=== PATIENT | male | born 1950 | race Caucasian/White ===

== ENCOUNTER 2016-12-15 07:06 | Inpatient (IN) | payer BC ==
[2016-12-15] MEDS ORDERED: NS 0.9% 1000 ML* 1,000 ML IV ONE (07:45)
[2016-12-15 08:10] LABS: Hematocrit 46 % (42-52); Mean Corpuscular HGB Conc 35 g/dl (31-36); Mean Corpuscular Hemoglobin 31 pg (27-31); Mean Corpuscular Volume 88 fL (80-94); Mean Platelet Volume 9 um3 (7.4-10.4); Red Blood Count 5.24 10^6/ul (4.0-5.4); Red Cell Distribution Width 14 % (10.5-15); White Blood Count 5.2 10^3/ul (3.5-10.8)
[2016-12-15 08:22] LABS: Albumin 4.3 g/dL (3.2-5.2); BUN/Creatinine Ratio 17.6 (8-20); C Reactive Protein 115.91 mg/L (< 5.00); Calcium 8.7 mg/dL (8.6-10.3); EGFR African American 27.5 (>60); EGFR Non-African American 21.4 (>60); Globulin 3.1 g/dL (2-4); Magnesium 1.4 mg/dL (1.9-2.7); Potassium 3.4 mmol/L (3.5-5.0); Total Bilirubin 2.2 mg/dL (0.2-1.0); Total Protein 7.4 g/dL (6.4-8.9)
--- NOTE | 2016-12-15 08:49 | RAD ---
HISTORY: Abdominal pain COMPARISONS: July 15, 2010 VIEWS: Frontal supine and upright views of the abdomen. FINDINGS: BOWEL: There are dilated loops of small bowel with differential air-fluid levels. There is a paucity of distal bowel gas. CALCULI: There are no abnormal calculi. Surgical clips are noted in the abdomen. BONES AND SOFT TISSUES: There are no osseous abnormalities. OTHER FINDINGS: The lung bases are clear. There is no subphrenic gas. IMPRESSION: SMALL BOWEL OBSTRUCTION. NO SUBPHRENIC GAS.
[2016-12-15 10:40] LABS: Urine Bacteria Absent (Absent); Urine Bilirubin Negative (Negative); Urine Glucose Negative (Negative); Urine Nitrite Negative (Negative)
[2016-12-15] MEDS ORDERED: NS 0.9% 1000 ML* 1,000 ML IV SCH (11:45)
[2016-12-15] MEDS ORDERED: Ondansetron INJ* 2 MG/ML VIAL IV PRN (11:45)
[2016-12-15] MEDS ORDERED: Morphine INJ* 2 MG/ML 1 ML SYRINGE IV PRN (11:45)
[2016-12-15] MEDS ORDERED: Acetaminophen TAB* 325 MG PO PRN (11:45)
[2016-12-15] MEDS ORDERED: Dextrose 50% Syringe 50 ML* 25 GM/50 ML SYRINGE IV PUSH PRN (11:50)
[2016-12-15] MEDS ORDERED: Albuterol 2.5 MG/3 ML NEB.SOL* (0.083%) INH PRN (11:55)
[2016-12-15] MEDS ORDERED: Dexlansoprazole (NF) 60 MG CAP PO SCH (12:00)
[2016-12-15] MEDS ORDERED: Magnesium Sulfate 2 GM IV* 2 GM/50 ML BAG IVPB ONE (12:02)
--- NOTE | 2016-12-15 12:23 | RAD ---
INDICATION: Abdominal pain. COMPARISON: Comparison is made with a prior abdominal series from December 15, 2016. TECHNIQUE: A CT scan of the abdomen and pelvis was performed without intravenous or oral contrast. Contiguous axial sections were obtained from the lung bases through the symphysis pubis. Images were reconstructed in the coronal and sagittal planes. FINDINGS: The lung bases are clear. No pleural effusion is present. The liver and spleen are mildly enlarged. The liver is decreased in attenuation consistent with fatty infiltration. No focal abnormalities are seen on this noncontrast study. There are multiple gallstones present. The gallbladder is nondistended. The pancreas appears to be within normal limits. The adrenal glands and kidneys are normal in size. There is a small punctate 1 mm calculus noted in the upper pole of the left kidney. No hydronephrosis is present. The aorta is normal in caliber with mild calcific plaque present. No significant enlarged retroperitoneal lymph nodes are seen. The patient is status post colectomy. There is an ileostomy in the right lower quadrant. The stomach is nondistended. There is moderate distention of the mid small bowel. The very distal small bowel appears nondistended. These findings are most consistent with a partial small bowel obstruction. There are multiple surgical clips in the right and left upper and lower quadrants. No free intraperitoneal air or fluid is seen. No significant focal osseous abnormality is seen. IMPRESSION: 1. PARTIAL SMALL BOWEL OBSTRUCTION. 2. STATUS POST COLECTOMY. 3. CHOLELITHIASIS. 4. MILD HEPATOSPLENOMEGALY AND HEPATIC STEATOSIS. 5. SMALL NONOBSTRUCTING LEFT RENAL CALCULUS.
[2016-12-15] MEDS: KCL 10 MEQ/50 ML IVPREMIX* 10 MEQ/50 ML BAG IV SCH ×3 (13:30→16:20)
[2016-12-15] MEDS: NS 0.9% 1000 ML* 2,000 ML IV ONE ×3 (13:30→16:07)
[2016-12-15] MEDS: Heparin VIAL(*) 5000 UNITS/ML VIAL (FIVE THOUSAND) SUBCUT SCH ×2 (13:36→23:41)
[2016-12-15] MEDS: NS 0.9% 1000 ML* 1,000 ML IV SCH ×3 (13:54→20:45)
--- NOTE | 2016-12-15 14:31 | HP ---
HISTORY AND PHYSICAL: DATE OF ADMISSION: 12/15/16 PRIMARY CARE PROVIDER: Angeles Villegas ATTENDING PHYSICIAN WHILE IN THE HOSPITAL: Dr. Day Edwards* (report being dictated by Servando Dangelo NP) CHIEF COMPLAINT: 1. Increased ostomy output. 2. Abdominal discomfort. HISTORY OF PRESENT ILLNESS: Mr. Last is a 66-year-old male patient who has a history of CKD, I do not have baseline labs for him, history of GERD, hypothyroidism. He has a history of diabetes. In addition to this, he also has history of gastric polyps, hypertension, hyperlipidemia, ulcerative colitis. He was status post colectomy back in 1992 and also has had an SBO in the past, who is status post ileostomy revision and small bowel resection in the past. He comes into the ER today stating that he was having some abdominal discomfort mostly in the upper abdomen starting on Wednesday. His abdomen got progressively bloated and he is having increased ileostomy output. He has had numerous emptyings of his ileostomy. He denied any fevers or chills. He states he has been vomiting. He does state that he feels nauseous. He was concerned because the pain was not getting any better. He denied having any fevers, no chest pain, no shortness of breath, denied having any back pain. He denied having any trouble with urination, although he does state his urine has been much more concentrated. He was concerned that he was getting dehydrated, so he came into the ER to be evaluated. Today, on evaluation it was noted that on x-ray, he did appear to have what appeared to be a bowel obstruction. Because of these findings, the hospitalist service was asked to evaluate for admission. PAST MEDICAL HISTORY: Significant for: 1. CKD. 2. GERD. 3. Hypothyroidism. 4. Diabetes. 5. Nephrolithiasis. 6. Gastric polyps. 7. Hypertension. 8. Hyperlipidemia. 9. Ulcerative colitis. 10. MARTÍN. It is also listed on his paperwork from [place] that he has a history of COPD, although he is not on any inhalers. PAST SURGICAL HISTORY: 1. He has had an ileostomy. 2. In 2002, he had a bowel obstruction that required a small bowel resection and ileostomy revision. 3. He has also had a colectomy. HOME MEDICATIONS: Include: 1. Flomax 0.4 mg daily. 2. Ranitidine 150 mg p.o. at bedtime. 3. Sodium bicarbonate 1300 mg p.o. b.i.d. 4. Zocor 40 mg daily with meals. 5. Ramipril 10 mg daily. 6. Mobic 15 mg p.o. daily. 7. Synthroid 50 mcg daily. 8. Insulin aspart pump. He changes it every 48 hours. 9. Gabapentin 300 mg p.o. b.i.d. 10. Lasix 60 mg daily 11. Inspra 25 mg daily. 12. Dexilant 60 mg a day. 13. Glucagon 1 mg subcu once as needed daily. 14. Aspirin 81 mg a day. 15. Allopurinol 100 mg p.o. b.i.d. 16. Vitamin D 50,000 units p.o. every 30 days. ALLERGIES TO MEDICATIONS: Include VERSED. FAMILY HISTORY: His father had prostate cancer. Mother had , he thinks from complications of prednisone. SOCIAL HISTORY: He is a former smoker. He does drink alcohol. He is . Surrogate decision maker is his . REVIEW OF SYSTEMS: There was no documented fever. He denied having any significant weight change. There was no double vision. There was no ear discharge. He denies having any rhinorrhea, no sore throat, no thyroid enlargement, denies having any chest pain. There is no orthopnea. There is no nocturnal dyspnea. There is no abdominal pain. There was no nausea, no vomiting. He did have increased ileostomy output. He denied having any double vision. No ear discharge. There was no rhinorrhea. No sore throat. No thyroid enlargement. Denied having any chest pain. Review of 14 systems completed, all others negative. PHYSICAL EXAMINATION GENERAL: Mr. Last is a 66-year-old male patient. He is sitting in the ER stretcher. He does not appear to be in any acute distress. VITAL SIGNS: Blood pressure 110/68, pulse 83, respirations 18, O2 sat 98%, temperature 97.8. HEENT: Head is atraumatic and normocephalic. Eyes: EOMs are intact. Sclerae anicteric. Throat: Oral mucosa appeared to be dry. No oropharyngeal erythema. NECK: Supple. HEART: Sounds S1, S2. Regular rate and rhythm. No murmurs, rubs or gallops. LUNGS: Clear to auscultation bilaterally. No wheezes, rales, or rhonchi. ABDOMEN: Soft, it was distended. It was tender in the right upper and left upper quadrant. His ileostomy did have a significant amount of output noted. The stoma did appear to be pink. It did not appear to be dusky. There was no tenderness around the stoma. EXTREMITIES: Pulses were 2+ throughout. He is able to move all 4 extremities with 5/5 strength. NEUROLOGIC: The patient is awake. He is alert. He is oriented x3. His tongue is midline. No gross focal deficits. SKIN: Intact. LABORATORY DATA AND DIAGNOSTIC STUDIES: Today revealed a WBC of 5.2, RBC of 5.24, hemoglobin 16.0, hematocrit of 46, platelet count of 197. His sodium was 132, potassium 3.4, chloride 97, bicarb of 21, BUN was 52, creatinine of 2.96, no previous for comparison. Glucose of 196, lactic 1.2, calcium 8.7. His mag was 1.4. Total bili 2.2, AST 29, ALT 48. His CRP was 115. Albumin of 4.3, amylase 44, lipase 24. Urine showed trace ketones, 1+ blood, 1+ wbc, 2+ rbc. He did have an abdominal x-ray obtained today, which revealed small bowel obstruction, no subphrenic gas. There was an EKG obtained today, which revealed a normal sinus rhythm, rate of 68. No ST elevations or T-wave inversions were noted. Old medical records were reviewed. ASSESSMENT AND PLAN: Mr. Last is a 66-year-old male patient coming into the ER today with complaints of abdominal discomfort, increased ileostomy output. He will be admitted under inpatient status for: 1. Abdominal pain. Again etiology is unclear, could be an SBO, the x-ray is pointing to this; however, it would be odd to have him having such copious amounts of output. I questioned if he has gastroenteritis. My plan is to go ahead and send off stool studies, get a surgical consult, get a CT of the abdomen and pelvis. We will give him 2 more liters of fluid wide open, then normal saline at 125 an hour. For the time being, leave him NPO until surgical evaluation and hold off on NG tube unless he starts having active vomiting. At this point, we will continue to follow and wait for surgical input. 2. Chronic kidney disease. Again, he does appear to have acute kidney injury. It is probably prerenal from the copious amounts of output. We will go ahead and hydrate him aggressively. We will send off a FENa and we will continue to follow. 3. Gastroesophageal reflux disease. I have ordered continue his Dexilant. 4. Hypothyroidism, continue IV dose of his Synthroid. 5. Diabetes. He has a pump attached to him, so we will continue this. We will just follow his sugars every 6 hours. 6. Gastric polyps. Follow with his primary. 7. Hypertension in the setting of acute illness. He is on ITALO inhibitor. He is also on Inspra and he is also on Lasix. We will be holding all of these medications for the time being and then we will restart them when able. 8. Hyperlipidemia. I will restart his statin when able. 9. History of ulcerative colitis. Follow with his primary. 10. Obstructive sleep apnea and question of history of chronic obstructive pulmonary disease. I ordered nebulizers and I have ordered CPAP. 11. DVT prophylaxis. He is high risk. He will be placed on heparin subcu. 12. Code status. Full code. 13. Fluids, electrolytes and nutrition. He is NPO. He will have normal saline , 2 L bolus now and then he will have normal saline going at 150 an hour. 14. Hypokalemia. We will go ahead and replace this. 15. Hypomagnesemia. We will go ahead and replace this. TIME SPENT: Time spent on the admission 60 minutes, greater than half that time spent [id number] with the patient obtaining my history and physical, the other half time spent going over the plan of care with the patient and implementing the plan of care. I did discuss the plan of care with my attending, Dr. Edwards. She is in agreement. SERVANDO DANGELO NP CC: Dr. Mccollum [place]; Dr. Hodge* [id number]/[facility] #: [id number] MTDD
[2016-12-15] MEDS: Allopurinol TAB* 100 MG PO SCH (20:11)
[2016-12-15] MEDS: Gabapentin CAP(*) 300 MG PO SCH (20:11)
--- NOTE | 2016-12-15 22:14 | CONS ---
SURGICAL CONSULT NOTE: DATE OF CONSULT: 12/15/16 ATTENDING SURGEON: Dr. Earnest Hodge (dictated by DISHA Millan) CHIEF COMPLAINT: Abdominal pain. HISTORY OF PRESENT ILLNESS: This is a 66-year-old male status post total proctocolectomy for ulcerative colitis who beginning Wednesday evening noted feeling feverish and having sweats. Symptoms continued with associated nausea, but no vomiting, and then pain across the upper abdomen developed in the subsequent 24 hours and has continued through this morning prompting a visit to the emergency department. He states the pain is increased with movement and is colicky with a peak 5-6/10 and 3/10 baseline. He states that he has had ongoing output from his right lower quadrant ileostomy including both liquid stool and gas. He states that the output has been more liquid than usual. He did have one episode of small bowel obstruction for which he underwent exploratory laparotomy with lysis of adhesions and small bowel resection (a small portion of the distal small bowel that was not viable) in [address] Christina. He has not had any other similar incidences in the interim. PAST MEDICAL HISTORY: Ulcerative colitis, hypertension, hyperlipidemia, obstructive sleep apnea (on BiPAP), GERD, type 2 diabetes (on insulin pump), COPD, osteoarthritis, nephrolithiasis, hypothyroidism, Raynaud's syndrome. PAST SURGICAL HISTORY: Previous surgeries include total proctocolectomy approximately 20 to 25 years ago, exploratory laparotomy, lysis of adhesions with small bowel resection and revision of his ileostomy in [address] Christina. 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 He states that he has ongoing EGDs done by heat treat technician in [place] yearly and he does have multiple gastric polyps (presumably related to his long-term PPI usage). MEDICATIONS: On admission include: 1. Vitamin D 50,000 once monthly. 2. Allopurinol 100 mg b.i.d. 3. Aspirin 81 mg once daily. 4. Dexilant 60 mg daily. 5. Eplerenone 25 mg daily. 6. Furosemide 20 mg 3 tablets daily (uses for peripheral edema). 7. Gabapentin 300 mg b.i.d. 8. He has a NovoLog pump with basal rate as well as coverage. 9. Levothyroxine 50 mcg daily. 10. Meloxicam 15 mg daily. 11. Ramipril 10 mg daily. 12. Simvastatin 40 mg daily. 13. Tamsulosin 0.4 mg p.r.n. if passing kidney stone. 14. Zantac 150 mg daily. ALLERGIES: VERSED (cognitive impairment). FAMILY HISTORY: Negative for anesthesia problems, bleeding or clotting disorders. SOCIAL HISTORY: The patient is . 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 He quit smoking in 1989. He denies use of alcohol or other recreational drugs. REVIEW OF SYSTEMS: No additions to above other than that his urine has been dark. All other systems are negative. PHYSICAL EXAM: Height 5 feet 10 inches, weight 218 pounds, temperature 97.8, blood pressure 110/68, pulse 83, respirations 20, room air saturation 96%. General: Well-nourished, well-developed somewhat obese male, in no acute distress. He appears comfortable on the hospital bed. Skin: Warm and dry. No suspicious rashes or lesions noted. HEENT: Pupils equal and round, reactive. EOMs intact. Conjunctivae pallor. Oropharynx: Mucous membranes dry. He has full upper and partial lower denture. Remaining teeth in good repair. No intraoral lesions. Neck: No lymphadenopathy, thyromegaly or masses. By history, no lymphadenopathy in the axillae and groins. Heart: Regular rate and rhythm. No murmurs appreciated. Lungs: Clear to auscultation. No rales or wheezes. Abdomen: Bowel sounds are present. There is a right lower quadrant ileostomy the surface of which appears dry though there is ample effluent in the bag. The color of the ileostomy is normal. There is a bit of bulge possibly representing a parastomal hernia. There is tympany across the upper abdomen, where there is also some vague nonspecific and nonlocalized tenderness. The lower abdomen likewise is vaguely uncomfortable. There are no palpable masses or organomegaly. No palpable inguinal hernias. Genitalia: Otherwise not examined. Rectal: He is status post proctocolectomy. Back: No spinous process or CVA tenderness. Extremities : No edema. Neurologic: Grossly intact. DIAGNOSTIC STUDIES/LAB DATA: Of note, white blood cell count 5,200, hemoglobin 16. Electrolytes, sodium 132, potassium 3.4, chloride 97, CO2 21, BUN 52, creatinine 2.96 (ratio is normal), lactic acid is normal at 1.2, glucose 196, total bilirubin 2.2, magnesium 1.4. Liver function tests, amylase and lipase are normal. Urinalysis is notable for 1+ protein, 1+ blood, and positive for hyaline casts. CT scan which was reviewed by me personally showed fatty liver changes, multiple gallstones, multiple surgical clips in the left upper quadrant as well as left lower quadrant. There is a small left-sided nonobstructing renal calculus. There are dilated small bowel loops in the mid portion with what appears to be relatively decompressed distal small bowel. The stomach is otherwise normal. IMPRESSION: Partial small bowel obstruction. PLAN: I agreed with conservative treatment at this point i.e. aggressive fluid resuscitation. Medication as needed for management of pain and nausea and close clinical followup. At this point, there is no immediate indication for surgical intervention. The patient states that if surgical intervention is recommended, he would prefer to have surgery in [place]. DISHA MCKENNA CC: Dr. Nabeel Mccollum, [place]; Dr. Kelin Fulton, [place]; Dr. Dooley [place]* [id number]/[facility] #: [id number] MTDChandu
[2016-12-15] MEDS: Sodium Bicarbonate (ANTACID)* 650 MG TAB PO SCH (22:51)
[2016-12-15] MEDS: Famotidine TAB* 20 MG PO SCH (22:52)
[2016-12-16] MEDS: NS 0.9% 1000 ML* 1,000 ML IV SCH (01:30)
[2016-12-16 06:34] LABS: Hematocrit 41 % (42-52); Hemoglobin 14.2 g/dl (14.0-18.0); Mean Corpuscular HGB Conc 35 g/dl (31-36); Mean Corpuscular Hemoglobin 31 pg (27-31); Mean Corpuscular Volume 88 fL (80-94); Mean Platelet Volume 8 um3 (7.4-10.4); Red Blood Count 4.65 10^6/ul (4.0-5.4); Red Cell Distribution Width 14 % (10.5-15); White Blood Count 3.5 10^3/ul (3.5-10.8)
[2016-12-16 06:49] LABS: BUN/Creatinine Ratio 22.2 (8-20); Calcium 7.7 mg/dL (8.6-10.3); EGFR African American 58.9 (>60); EGFR Non-African American 45.8 (>60); Potassium 3.5 mmol/L (3.5-5.0)
[2016-12-16] MEDS: Levothyroxine INJ* 100 MCG/5 ML VIAL IV SCH (07:08)
[2016-12-16] MEDS: Heparin VIAL(*) 5000 UNITS/ML VIAL (FIVE THOUSAND) SUBCUT SCH ×3 (07:11→20:27)
--- NOTE | 2016-12-16 08:28 | RAD ---
HISTORY: Small bowel obstruction COMPARISONS: December 15, 2016 VIEWS: Frontal supine and upright views of the abdomen. FINDINGS: BOWEL: Again noted are multiple dilated loops of small bowel with paucity of distal bowel gas. The degree of bowel dilatation is stable. CALCULI: Gallstones are noted. Surgical clips are noted in the abdomen. BONES AND SOFT TISSUES: Mild degenerative changes are noted OTHER FINDINGS: The lung bases are clear. There is no subphrenic gas. IMPRESSION: STABLE SMALL BOWEL OBSTRUCTIVE PATTERN.
[2016-12-16] MEDS: Gabapentin CAP(*) 300 MG PO SCH ×2 (09:07→20:27)
--- NOTE | 2016-12-16 09:07 | SURGPN ---
Subjective - Introduction -: Reports feeling about the same. Denies N/V, fever or chills. Has been NPO. Still has liquid stool output in ileostomy bag, filled up twice overnight. - Medications -: Active Medications Generic Name Dose Route Start Last Admin Trade Name Freq PRN Reason Stop Dose Admin Acetaminophen 650 mg 12/15/16 11:45 Tylenol Tab* PO Q4H PRN FEVER/PAIN Albuterol 2.5 mg 12/15/16 11:55 Ventolin 2.5 Mg/3 Ml Neb.Vidhi* INH Q2H PRN SOB/WHEEZING Allopurinol 100 mg 12/15/16 21:00 12/15/16 20:11 Zyloprim Tab* PO 100 mg BID EAMON Administration Dexlansoprazole 60 mg 12/16/16 09:00 Dexilant (Nf) PO DAILY EAMON Dextrose 25 gm 12/15/16 11:50 D50w Syringe 50 Ml* IV PUSH .FOR FS < 60 - SS PRN FS < 60 Famotidine 20 mg 12/15/16 22:00 12/15/16 22:52 Pepcid Tab* PO 20 mg BEDTIME EAMON Administration Gabapentin 300 mg 12/15/16 21:00 12/15/16 20:11 Neurontin Cap(*) PO 300 mg BID EAMON Administration Heparin Sodium (Porcine) 5,000 units 12/15/16 14:00 12/16/16 07:11 Heparin Vial(*) SUBCUT Not Given Q8HR EAMON Sodium Chloride 1,000 mls @ 200 mls/hr 12/15/16 20:47 12/16/16 01:30 Ns 0.9% 1000 Ml* IV 200 mls/hr PER RATE EAMON Administration Levothyroxine Sodium 25 mcg 12/16/16 06:00 12/16/16 07:08 Synthroid Inj* IV 25 mcg 0600 EAMON Administration Morphine Sulfate 2 mg 12/15/16 11:45 Morphine Inj (Syringe)* IV Q4H PRN PAIN - MILD Ondansetron HCl 4 mg 12/15/16 11:45 Zofran Inj* IV Q6H PRN NAUSEA Sodium Bicarbonate 1,300 mg 12/15/16 21:00 12/15/16 22:51 Sodium Bicarbonate (Antacid)* PO 1,300 mg BID EAMON Administration Objective - Objective -: Awake and alert. Comfortable sitting on bed, in NAD. - Intake and Output -: Intake & Output 12/14/16 12/15/16 12/16/16 12/17/16 06:59 06:59 06:59 06:59 Intake Total 2868 0 Output Total 900 Balance 1968 0 Weight 221 lb 9.6 oz Intake: IV Fluids 2700 NS (0.9%) 2700 IVPB 168 Potassium 168 Oral 0 0 Output: Urine 450 Colostomy 450 Other: # Bowel Movements 0 Surgical Physical Exam - Comments -: VSS, afebrile Lungs CTA bilat. Heart RRR, no murmurs Abdomen soft, NT, mildly distended. Stoma viable, with good liquid brown stool output. BS hyperactive throughout. Surgical scars from pervious surgeries well healed, no hernias or masses. Ext. no edema Labs and abdominal films noted. Assessment and Plan - Assessment -: A 66 y/o gentlema with partial SBO, end ileostomy and hx multiple abdominal surgeries. - Plan Additional Comments: Will continue conservative measures for now. No surgical indications or sign of acute abdomen. Patient again expressed his desire to have any surgical intervention in [place] if necessary. Total visit 30 min, with >50% time spent counseling and answering questions.
[2016-12-16] MEDS: Allopurinol TAB* 100 MG PO SCH ×2 (09:08→20:27)
[2016-12-16] MEDS: Sodium Bicarbonate (ANTACID)* 650 MG TAB PO SCH ×2 (09:08→20:27)
[2016-12-16] MEDS: DEXLANSOPRAZOLE 60 MG PO SCH (09:53)
[2016-12-16] MEDS ORDERED: D5W 1/2 NS KCl 20 Meq 1000 ML* 1,000 ML IV SCH (11:00)
--- NOTE | 2016-12-16 14:08 | PN ---
Subjective Date of Service: 12/16/16 Interval History: Ileostomy output has slowed down but still more than normal for him. No emesis , nausea. Little appetite. Minimal pain if any. No new c/o. Patient feels his urine is more concentrated than it should be. Objective Active Medications: Acetaminophen (Tylenol Tab*) 650 mg PO Q4H PRN PRN Reason: FEVER/PAIN Albuterol (Ventolin 2.5 Mg/3 Ml Neb.Vidhi*) 2.5 mg INH Q2H PRN PRN Reason: SOB/WHEEZING Allopurinol (Zyloprim Tab*) 100 mg PO BID [facility] Last Admin: 12/16/16 09:08 Dose: 100 mg Dexlansoprazole (Dexilant (Nf)) 60 mg PO DAILY [facility] Last Admin: 12/16/16 09:53 Dose: 60 mg Dextrose (D50w Syringe 50 Ml*) 25 gm IV PUSH .FOR FS < 60 - SS PRN PRN Reason: FS < 60 Famotidine (Pepcid Tab*) 20 mg PO BEDTIME [facility] Last Admin: 12/15/16 22:52 Dose: 20 mg Gabapentin (Neurontin Cap(*)) 300 mg PO BID [facility] Last Admin: 12/16/16 09:07 Dose: 300 mg Heparin Sodium (Porcine) (Heparin Vial(*)) 5,000 units SUBCUT Q8HR [facility] Last Admin: 12/16/16 07:11 Dose: Not Given Potassium Chloride/Dextrose (D5w 1/2 Ns Kcl 20 Meq 1000 Ml*) 1,000 mls @ 175 mls/hr IV PER RATE [facility] Levothyroxine Sodium (Synthroid Inj*) 25 mcg IV 0600 [facility] Last Admin: 12/16/16 07:08 Dose: 25 mcg Morphine Sulfate (Morphine Inj (Syringe)*) 2 mg IV Q4H PRN PRN Reason: PAIN - MILD Ondansetron HCl (Zofran Inj*) 4 mg IV Q6H PRN PRN Reason: NAUSEA Sodium Bicarbonate (Sodium Bicarbonate (Antacid)*) 1,300 mg PO BID [facility] Last Admin: 12/16/16 09:08 Dose: 1,300 mg Vital Signs 12/15/16 12/15/16 12/15/16 16:53 20:05 20:11 Temperature 98.5 F 98.0 F Pulse Rate 74 73 Respiratory 20 20 20 Rate Blood Pressure 112/60 117/71 (mmHg) O2 Sat by Pulse 99 96 Oximetry 12/15/16 12/15/16 12/15/16 20:15 22:11 23:36 Temperature 98.4 F Pulse Rate 68 Respiratory 20 20 17 Rate Blood Pressure 161/93 (mmHg) O2 Sat by Pulse 94 Oximetry 12/16/16 12/16/16 12/16/16 03:15 07:22 09:07 Temperature 97.8 F 97.9 F Pulse Rate 70 64 Respiratory 17 16 16 Rate Blood Pressure 150/87 139/85 (mmHg) O2 Sat by Pulse 96 97 Oximetry 12/16/16 11:22 Temperature 97.8 F Pulse Rate 72 Respiratory 16 Rate Blood Pressure 125/80 (mmHg) O2 Sat by Pulse 94 Oximetry Oxygen Devices in Use Now: None Appearance: Alert, partly up in bed. In good spirits. Looks comfortable. Eyes: No Scleral Icterus Respiratory: Symmetrical Chest Expansion and Respiratory Effort, Clear to Auscultation, Clear to Percussion Cardiovascular: NL Sounds; No Murmurs; No JVD, RRR, No Edema, - Abdominal: - - Few BS. Soft, not tender. Obese. Extremities: No Edema, No Clubbing, Cyanosis, - Skin: No Rash or Ulcers, No Nodules or Sclerosis, - Neurological: Alert and Oriented x 3, NL Sensation Result Diagrams: 12/16/16 06:00 12/16/16 06:00 Microbiology and Other Data: Microbiology 12/15/16 12:26 Urine Culture - Final Urine 12/15/16 15:20 Stool Gross Appearance - Final Stool Shiga Toxin I & II - Final Negative Shiga Toxin 1 & 2 Rotavirus Antigen - Final Negative Rotavirus 12/15/16 15:20 Stool Gross Appearance - Final Stool Stool Lactoferrin - Final Assess/Plan/Problems-Billing Assessment: - Patient Problems (1) Partial small bowel obstruction Current Visit: Yes Status: Acute Code(s): K56.69 - OTHER INTESTINAL OBSTRUCTION SNOMED Code(s): 132754700 (2) Hypothyroidism Current Visit: Yes Status: Acute Code(s): E03.9 - HYPOTHYROIDISM, UNSPECIFIED SNOMED Code(s): 59345400 Comment: IV levothyroxine ordered. Add on TSH requested. (3) CKD (chronic kidney disease) Current Visit: Yes Status: Acute Code(s): N18.9 - CHRONIC KIDNEY DISEASE, UNSPECIFIED SNOMED Code(s): 283964434 Comment: Pt states his most recent creatinine in [place] about 1.3. (4) Ulcerative colitis Current Visit: Yes Status: Acute Code(s): K51.90 - ULCERATIVE COLITIS, UNSPECIFIED, WITHOUT COMPLICATIONS SNOMED Code(s): 27828260 Comment: S/P colectomy. (5) 23-polyvalent pneumococcal polysaccharide vaccine indication of diabetes in patient 6 to 64 years of age Current Visit: Yes Status: Acute Code(s): E11.9 - TYPE 2 DIABETES MELLITUS WITHOUT COMPLICATIONS; Z91.89 - OTH PERSONAL RISK FACTORS, NOT ELSEWHERE CLASSIFIED SNOMED Code(s): 762367177 Comment: Has insulin pump. FS glucose q 6 hr. (6) HTN (hypertension) Current Visit: Yes Status: Acute Code(s): I10 - ESSENTIAL (PRIMARY) HYPERTENSION SNOMED Code(s): 73617109 Comment: Ramipril on hold. (7) GERD (gastroesophageal reflux disease) Current Visit: Yes Status: Acute Code(s): K21.9 - GASTRO-ESOPHAGEAL REFLUX DISEASE WITHOUT ESOPHAGITIS SNOMED Code(s): 296053200 Comment: Pt brought his Dexlanxooprazole.
[2016-12-16 14:19] LABS: TSH (Thyroid Stimulating Horm) 3.73 mcIU/mL (0.34-5.60)
[2016-12-16] MEDS: D5W 1/2 NS KCl 20 Meq 1000 ML* 1,000 ML IV SCH ×3 (14:42→23:26)
[2016-12-16] MEDS: Famotidine TAB* 20 MG PO SCH (20:27)
[2016-12-17] MEDS: Heparin VIAL(*) 5000 UNITS/ML VIAL (FIVE THOUSAND) SUBCUT SCH ×3 (04:04→21:00)
[2016-12-17] MEDS: D5W 1/2 NS KCl 20 Meq 1000 ML* 1,000 ML IV SCH ×4 (05:09→23:14)
[2016-12-17] MEDS: Levothyroxine INJ* 100 MCG/5 ML VIAL IV SCH (05:43)
[2016-12-17 05:52] LABS: BUN/Creatinine Ratio 16.4 (8-20); Calcium 8.1 mg/dL (8.6-10.3); EGFR African American 76.4 (>60); EGFR Non-African American 59.4 (>60); Potassium 3.8 mmol/L (3.5-5.0)
[2016-12-17] MEDS: Gabapentin CAP(*) 300 MG PO SCH ×2 (09:41→20:56)
[2016-12-17] MEDS: Sodium Bicarbonate (ANTACID)* 650 MG TAB PO SCH ×2 (09:41→20:59)
[2016-12-17] MEDS: DEXLANSOPRAZOLE 60 MG PO SCH (09:41)
[2016-12-17] MEDS: Allopurinol TAB* 100 MG PO SCH ×2 (09:42→20:57)
--- NOTE | 2016-12-17 12:06 | PN ---
Subjective Date of Service: 12/17/16 Interval History: Little if any subj change. Some flatus in ostomy bag today. Objective Active Medications: Acetaminophen (Tylenol Tab*) 650 mg PO Q4H PRN PRN Reason: FEVER/PAIN Albuterol (Ventolin 2.5 Mg/3 Ml Neb.Vidhi*) 2.5 mg INH Q2H PRN PRN Reason: SOB/WHEEZING Allopurinol (Zyloprim Tab*) 100 mg PO BID [facility] Last Admin: 12/17/16 09:42 Dose: 100 mg Dexlansoprazole (Dexilant (Nf)) 60 mg PO DAILY [facility] Last Admin: 12/17/16 09:41 Dose: 60 mg Dextrose (D50w Syringe 50 Ml*) 25 gm IV PUSH .FOR FS < 60 - SS PRN PRN Reason: FS < 60 Famotidine (Pepcid Tab*) 20 mg PO BEDTIME [facility] Last Admin: 12/16/16 20:27 Dose: 20 mg Gabapentin (Neurontin Cap(*)) 300 mg PO BID [facility] Last Admin: 12/17/16 09:41 Dose: 300 mg Heparin Sodium (Porcine) (Heparin Vial(*)) 5,000 units SUBCUT Q8HR [facility] Last Admin: 12/17/16 04:04 Dose: Not Given Potassium Chloride/Dextrose (D5w 1/2 Ns Kcl 20 Meq 1000 Ml*) 1,000 mls @ 175 mls/hr IV PER RATE [facility] Last Admin: 12/17/16 10:58 Dose: 175 mls/hr Levothyroxine Sodium (Synthroid Inj*) 25 mcg IV 0600 [facility] Last Admin: 12/17/16 05:43 Dose: 25 mcg Morphine Sulfate (Morphine Inj (Syringe)*) 2 mg IV Q4H PRN PRN Reason: PAIN - MILD Ondansetron HCl (Zofran Inj*) 4 mg IV Q6H PRN PRN Reason: NAUSEA Sodium Bicarbonate (Sodium Bicarbonate (Antacid)*) 1,300 mg PO BID [facility] Last Admin: 12/17/16 09:41 Dose: 1,300 mg Vital Signs 12/16/16 12/16/16 12/16/16 16:04 19:18 20:00 Temperature 97.6 F 98.3 F Pulse Rate 60 60 Respiratory 16 Rate Blood Pressure 136/70 132/74 (mmHg) O2 Sat by Pulse 98 97 Oximetry 12/16/16 12/16/16 12/17/16 20:27 22:27 00:00 Temperature 97.6 F Pulse Rate 58 Respiratory 16 16 17 Rate Blood Pressure 132/84 (mmHg) O2 Sat by Pulse 97 Oximetry 12/17/16 12/17/16 12/17/16 02:21 03:45 07:24 Temperature 97.3 F Pulse Rate 60 56 61 Respiratory 16 16 16 Rate Blood Pressure 124/89 123/71 (mmHg) O2 Sat by Pulse 97 99 98 Oximetry 12/17/16 12/17/16 08:00 09:41 Temperature Pulse Rate Respiratory 16 17 Rate Blood Pressure (mmHg) O2 Sat by Pulse Oximetry Oxygen Devices in Use Now: None Appearance: Alert, in a chair. In good spirits. Looks comfortable. Abdominal: No Hepatosplenomegaly, - - Obese, tympanitic. Not tender. Diminished BS. Result Diagrams: 12/16/16 06:00 12/17/16 05:09 Microbiology and Other Data: Microbiology 12/15/16 12:26 Urine Culture - Final Urine 12/15/16 15:20 Stool Gross Appearance - Final Stool Shiga Toxin I & II - Final Negative Shiga Toxin 1 & 2 Rotavirus Antigen - Final Negative Rotavirus 12/15/16 15:20 Stool Gross Appearance - Final Stool Stool Lactoferrin - Final Assess/Plan/Problems-Billing Assessment: - Patient Problems (1) Partial small bowel obstruction Current Visit: Yes Status: Acute Code(s): K56.69 - OTHER INTESTINAL OBSTRUCTION SNOMED Code(s): 900176175 Comment: Advance diet as per surgical DISHA Shafer. Continu IV fluids. (2) Hypothyroidism Current Visit: Yes Status: Acute Code(s): E03.9 - HYPOTHYROIDISM, UNSPECIFIED SNOMED Code(s): 93190540 Comment: IV levothyroxine ordered. Add on TSH 3.73 12/16/16. (3) CKD (chronic kidney disease) Current Visit: Yes Status: Acute Code(s): N18.9 - CHRONIC KIDNEY DISEASE, UNSPECIFIED SNOMED Code(s): 361629667 Comment: CKD stage III, stable. (4) Ulcerative colitis Current Visit: Yes Status: Acute Code(s): K51.90 - ULCERATIVE COLITIS, UNSPECIFIED, WITHOUT COMPLICATIONS SNOMED Code(s): 22145693 Comment: S/P colectomy. (5) 23-polyvalent pneumococcal polysaccharide vaccine indication of diabetes in patient 6 to 64 years of age Current Visit: Yes Status: Acute Code(s): E11.9 - TYPE 2 DIABETES MELLITUS WITHOUT COMPLICATIONS; Z91.89 - OTH PERSONAL RISK FACTORS, NOT ELSEWHERE CLASSIFIED SNOMED Code(s): 585948206 Comment: Has insulin pump. Patient will check his own FS glucose. (6) HTN (hypertension) Current Visit: Yes Status: Acute Code(s): I10 - ESSENTIAL (PRIMARY) HYPERTENSION SNOMED Code(s): 02950238 Comment: Ramipril on hold. (7) GERD (gastroesophageal reflux disease) Current Visit: Yes Status: Acute Code(s): K21.9 - GASTRO-ESOPHAGEAL REFLUX DISEASE WITHOUT ESOPHAGITIS SNOMED Code(s): 095020346 Comment: Pt brought his Dexlanoprazole. (8) MIKHAIL (acute kidney injury) Current Visit: Yes Status: Acute Code(s): N17.9 - ACUTE KIDNEY FAILURE, UNSPECIFIED SNOMED Code(s): 39814243 Comment: Severe MIKHAIL on admission due to dehydration in part due to high ileostomy output. Resolved.
--- NOTE | 2016-12-17 12:18 | PN ---
Progress Note - Progress Note Note: Surgery Progress: S: HD #3. Feels about the same, though better hydrated. Would like to drink. Continues to have moderate ileostomy output. Occ borborygmi. O: Vital Signs - 8 hr 12/17/16 12/17/16 12/17/16 07:24 08:00 09:41 Temperature 97.3 F Pulse Rate 61 Respiratory 16 16 17 Rate Blood Pressure 123/71 (mmHg) O2 Sat by Pulse 98 Oximetry Intake and Output Last 24 Hours (does not include ostomy output) 12/15/16 12/16/16 12/17/16 12/18/16 06:59 06:59 06:59 06:59 Intake Total 3868 2955 0 Output Total 900 1535 Balance 2968 1420 0 Weight 221 lb 9.6 oz Intake: IV Fluids 3700 1965 D5W 1/2 NS 20 meq KCL 1965 NS (0.9%) 2700 IVPB 168 990 D5W 1/2 NS 20 meq KCL 990 Potassium 168 Oral 0 0 0 Output: Urine 450 1535 Colostomy 450 Other: Estimated Void Medium Medium # Bowel Movements 0 1 0 Estimated Stool Amount Small # Voids 2 2 Gen: NAD; comfortable appearing HEENT: mm w/ thick whitish coating Heart: reg Lungs: clear ant and post Abd: few BS; occ high-pitched gurgles and rushes Labs: Laboratory Tests 12/16/16 12/17/16 06:00 05:09 WBC 3.5 Hgb 14.2 Sodium 137 Potassium 3.8 Chloride 108 Carbon Dioxide 25 BUN 20 Creatinine 1.22 H Glucose 158 H No imaging today (yesterday's AXR reviewed) A: partial SBO, w/o sig change P: cont IVF; relative bowel rest (I spoke w/ Dr. Lester and will allow him clears, though patient knows to stop if he has any worsening of sx). Will have Dr. Hodge see him as well for discussion of surgery indications, as patient still expresses desire to go to [place] if req'd.
[2016-12-17] MEDS: Famotidine TAB* 20 MG PO SCH (20:58)
[2016-12-18] MEDS: Heparin VIAL(*) 5000 UNITS/ML VIAL (FIVE THOUSAND) SUBCUT SCH ×3 (05:12→20:33)
[2016-12-18] MEDS: Levothyroxine INJ* 100 MCG/5 ML VIAL IV SCH (05:24)
[2016-12-18] MEDS: D5W 1/2 NS KCl 20 Meq 1000 ML* 1,000 ML IV SCH ×4 (05:25→23:56)
[2016-12-18] MEDS: Sodium Bicarbonate (ANTACID)* 650 MG TAB PO SCH ×2 (08:49→20:32)
[2016-12-18] MEDS: DEXLANSOPRAZOLE 60 MG PO SCH (08:50)
[2016-12-18] MEDS: Gabapentin CAP(*) 300 MG PO SCH ×2 (08:50→20:32)
[2016-12-18] MEDS: Allopurinol TAB* 100 MG PO SCH ×2 (08:50→20:32)
--- NOTE | 2016-12-18 10:37 | PN ---
Subjective Date of Service: 12/18/16 Interval History: Little subj change. Patient reports his urine is plodder operator in color today, nearly normal. Little pain. Ileostomy output volume about the same accrdong to patient. No new c/o. Pt reports his FS glucose is in the 100's. Objective Active Medications: Acetaminophen (Tylenol Tab*) 650 mg PO Q4H PRN PRN Reason: FEVER/PAIN Albuterol (Ventolin 2.5 Mg/3 Ml Neb.Vidhi*) 2.5 mg INH Q2H PRN PRN Reason: SOB/WHEEZING Allopurinol (Zyloprim Tab*) 100 mg PO BID [facility] Last Admin: 12/18/16 08:50 Dose: 100 mg Dexlansoprazole (Dexilant (Nf)) 60 mg PO DAILY [facility] Last Admin: 12/18/16 08:50 Dose: 60 mg Dextrose (D50w Syringe 50 Ml*) 25 gm IV PUSH .FOR FS < 60 - SS PRN PRN Reason: FS < 60 Famotidine (Pepcid Tab*) 20 mg PO BEDTIME [facility] Last Admin: 12/17/16 20:58 Dose: 20 mg Gabapentin (Neurontin Cap(*)) 300 mg PO BID [facility] Last Admin: 12/18/16 08:50 Dose: 300 mg Heparin Sodium (Porcine) (Heparin Vial(*)) 5,000 units SUBCUT Q8HR [facility] Last Admin: 12/18/16 05:12 Dose: Not Given Potassium Chloride/Dextrose (D5w 1/2 Ns Kcl 20 Meq 1000 Ml*) 1,000 mls @ 175 mls/hr IV PER RATE [facility] Last Admin: 12/18/16 05:25 Dose: 175 mls/hr Levothyroxine Sodium (Synthroid Inj*) 25 mcg IV 0600 [facility] Last Admin: 12/18/16 05:24 Dose: 25 mcg Morphine Sulfate (Morphine Inj (Syringe)*) 2 mg IV Q4H PRN PRN Reason: PAIN - MILD Ondansetron HCl (Zofran Inj*) 4 mg IV Q6H PRN PRN Reason: NAUSEA Sodium Bicarbonate (Sodium Bicarbonate (Antacid)*) 1,300 mg PO BID [facility] Last Admin: 12/18/16 08:49 Dose: 1,300 mg Vital Signs 12/17/16 12/17/16 12/17/16 11:41 11:49 15:02 Temperature 97.9 F Pulse Rate 57 62 Respiratory 15 16 20 Rate Blood Pressure 134/83 132/78 (mmHg) O2 Sat by Pulse 100 97 Oximetry 12/17/16 12/17/16 12/17/16 20:00 20:21 20:56 Temperature 97.6 F Pulse Rate 56 Respiratory 16 18 16 Rate Blood Pressure 130/83 (mmHg) O2 Sat by Pulse 100 Oximetry 12/17/16 12/17/16 12/17/16 22:56 23:21 23:23 Temperature 97.1 F Pulse Rate 61 60 Respiratory 16 16 20 Rate Blood Pressure 115/71 (mmHg) O2 Sat by Pulse 97 100 Oximetry 12/18/16 12/18/16 12/18/16 04:00 07:57 08:50 Temperature 98.2 F 97.7 F Pulse Rate 61 57 Respiratory 16 16 16 Rate Blood Pressure 119/71 119/75 (mmHg) O2 Sat by Pulse 98 99 Oximetry Oxygen Devices in Use Now: None Appearance: Alert, walking easily in his room. In good spirits. Looks comfortable. Eyes: No Scleral Icterus Abdominal: - - Sl distended, not tender. Tympanitic. Diminshed BS> Extremities: No Edema, No Clubbing, Cyanosis, - Skin: No Rash or Ulcers, No Nodules or Sclerosis, - Neurological: Alert and Oriented x 3, NL Sensation, NL Gait, NL Muscle Strength and Tone, - Result Diagrams: 12/16/16 06:00 12/17/16 05:09 Microbiology and Other Data: Microbiology 12/15/16 12:26 Urine Culture - Final Urine 12/15/16 15:20 Stool Gross Appearance - Final Stool Shiga Toxin I & II - Final Negative Shiga Toxin 1 & 2 Rotavirus Antigen - Final Negative Rotavirus 12/15/16 15:20 Stool Gross Appearance - Final Stool Stool Lactoferrin - Final Assess/Plan/Problems-Billing Assessment: - Patient Problems (1) Partial small bowel obstruction Current Visit: Yes Status: Acute Code(s): K56.69 - OTHER INTESTINAL OBSTRUCTION SNOMED Code(s): 842971745 Comment: Tolerating clear liquids. Continue IV fluids to compensate for high ileostomy output. Discussed with Dr. Hodge 12/17 and 12/18. Pt requests surgery be done by Dr. Burgos at [place]. Dr. Burgos has acceped pt. Awaiting bed availability. (2) Hypothyroidism Current Visit: Yes Status: Acute Code(s): E03.9 - HYPOTHYROIDISM, UNSPECIFIED SNOMED Code(s): 42538764 Comment: Continue IV levothyroxine. TSH 3.73 12/16/16. (3) CKD (chronic kidney disease) Current Visit: Yes Status: Acute Code(s): N18.9 - CHRONIC KIDNEY DISEASE, UNSPECIFIED SNOMED Code(s): 989204720 Comment: CKD stage III, stable. (4) Ulcerative colitis Current Visit: Yes Status: Acute Code(s): K51.90 - ULCERATIVE COLITIS, UNSPECIFIED, WITHOUT COMPLICATIONS SNOMED Code(s): 85277630 Comment: S/P colectomy. (5) 23-polyvalent pneumococcal polysaccharide vaccine indication of diabetes in patient 6 to 64 years of age Current Visit: Yes Status: Acute Code(s): E11.9 - TYPE 2 DIABETES MELLITUS WITHOUT COMPLICATIONS; Z91.89 - OTH PERSONAL RISK FACTORS, NOT ELSEWHERE CLASSIFIED SNOMED Code(s): 043750041 Comment: Has insulin pump. Patient is checking his own FS glucose and controlling his insulin pump. (6) HTN (hypertension) Current Visit: Yes Status: Acute Code(s): I10 - ESSENTIAL (PRIMARY) HYPERTENSION SNOMED Code(s): 69642042 Comment: Ramipril on hold. (7) GERD (gastroesophageal reflux disease) Current Visit: Yes Status: Acute Code(s): K21.9 - GASTRO-ESOPHAGEAL REFLUX DISEASE WITHOUT ESOPHAGITIS SNOMED Code(s): 793158562 Comment: Pt brought his Dexlanoprazole. (8) MIKHAIL (acute kidney injury) Current Visit: Yes Status: Acute Code(s): N17.9 - ACUTE KIDNEY FAILURE, UNSPECIFIED SNOMED Code(s): 29384710 Comment: Severe MIKHAIL on admission due to dehydration in part due to high ileostomy output. Resolved. Status and Disposition: Patient accepted in transfer to [place] ([facility]) by Dr. Burgos (surgery). Awaiting bed availability.
--- NOTE | 2016-12-18 12:37 | PN ---
Progress Note - Progress Note SOAP: Subjective: Sx are unchanged. Not needing pain meds but ongoing colicky pain. He desires transfer to [facility] if he needs surgery. Objective: Vital Signs Temp 97.7 F 12/18/16 07:57 Pulse 57 12/18/16 07:57 Resp 16 12/18/16 08:50 BP 119/75 12/18/16 07:57 Pulse Ox 99 12/18/16 07:57 NAD Abd: distended, soft, min tender, ostomy with thin bilious o/p. Intake & Output 12/17/16 12/18/16 12/18/16 18:59 06:59 18:59 Intake Total 2228 2409 440 Output Total 875 2120 900 Balance 1353 289 -460 Intake: IV Fluids 2007 1958 D5W / NS 20 meq KCL 2007 1958 Oral 220 450 440 Output: Urine 500 1100 600 Liquid Stool 300 300 Ileostomy 375 720 Other: Estimated Void Medium Medium Date of Last Bowel 12/17/16 Movement # Bowel Movements 3 1 0 # Voids 2 2 Assessment: pSBO. 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 He is not acutely ill but is resolving ARF. Plan: I discussed the situation with the patient and his daughter. He reiterated the desire to have surgery in [place] as he has previously consulted with Dr. Burgos (Colorectal) for this. I have placed a call to his office to try to facilitate a transfer.
--- NOTE | 2016-12-18 19:14 | TRS ---
TRANSFER SUMMARY: DATE OF ADMISSION: 12/15/16 DATE OF DISCHARGE: 12/20/16 HOSPITAL COURSE: This 66-year-old man presented to the emergency room complaining of abdominal discomfort in the upper abdomen starting 2 days prior to admission. He got progressive bloating of his abdomen and increased ileostomy output. He did not have fever or chills. He had some nausea. I am not sure if he vomited at home. He had no emesis here in the hospital. He was particularly concerned about dehydration due to his high ileostomy output. He had a CT scan of the abdomen and pelvis which was consistent with partial small bowel obstruction. Clinically, it was felt he had small bowel obstruction. He was followed by Dr. Hodge as well as the hospitalist service. I note incidental findings of cholelithiasis and nonobstructing left renal calculus on the CT scan. He is status post colectomy for ulcerative colitis. His condition remained stable while he was here. There was no sign of release of his small bowel obstruction at the time of this dictation. At the patient's request, he is being transferred to [facility] under the care of Dr. Burgos. FINAL DIAGNOSES: 1. Partial small bowel obstruction. 2. Hypothyroidism. 3. Chronic kidney disease. 4. History of ulcerative colitis. 5. Hypertension. 6. Gastroesophageal reflux disease. 7. Acute kidney injury. MEDICATIONS ON DISCHARGE: 1. Acetaminophen 650 mg every 4 hours p.r.n. 2. Albuterol 2.5 mg by nebulizer every 2 hours p.r.n. 3. Allopurinol 100 mg b.i.d. 4. D5 half normal saline with 20 mEq of KCl per liter at 175 mL per hour. 5. Dexlansoprazole 60 mg daily. 6. Famotidine 20 mg h.s. 7. Gabapentin 300 mg b.i.d. 8. Heparin 5000 units subcu every 8 hours. 9. Levothyroxine 25 mcg IV daily. 10. Morphine 2 mg IV q.4 hours p.r.n. 11. Ondansetron 4 mg IV every 6 hours p.r.n. 12. Sodium bicarbonate 1300 mg p.o. b.i.d. [id number]/[facility] #: [id number] [facility]
[2016-12-18] MEDS: Famotidine TAB* 20 MG PO SCH (20:32)
[2016-12-19] MEDS: Levothyroxine INJ* 100 MCG/5 ML VIAL IV SCH (05:41)
[2016-12-19] MEDS: Heparin VIAL(*) 5000 UNITS/ML VIAL (FIVE THOUSAND) SUBCUT SCH ×3 (05:41→22:30)
[2016-12-19] MEDS: D5W 1/2 NS KCl 20 Meq 1000 ML* 1,000 ML IV SCH ×3 (06:23→23:06)
[2016-12-19 07:20] LABS: Hematocrit 41 % (42-52); Hemoglobin 13.9 g/dl (14.0-18.0); Mean Corpuscular HGB Conc 34 g/dl (31-36); Mean Corpuscular Hemoglobin 31 pg (27-31); Mean Corpuscular Volume 89 fL (80-94); Mean Platelet Volume 9 um3 (7.4-10.4); Red Blood Count 4.55 10^6/ul (4.0-5.4); Red Cell Distribution Width 14 % (10.5-15); White Blood Count 6.6 10^3/ul (3.5-10.8)
[2016-12-19] MEDS: Sodium Bicarbonate (ANTACID)* 650 MG TAB PO SCH ×2 (07:33→21:08)
[2016-12-19 07:34] LABS: BUN/Creatinine Ratio 5.4 (8-20); Calcium 8.7 mg/dL (8.6-10.3); EGFR African American 71.7 (>60); EGFR Non-African American 55.7 (>60); Potassium 4.2 mmol/L (3.5-5.0)
[2016-12-19] MEDS: Gabapentin CAP(*) 300 MG PO SCH ×2 (07:34→21:09)
[2016-12-19] MEDS: DEXLANSOPRAZOLE 60 MG PO SCH (07:35)
[2016-12-19] MEDS: Allopurinol TAB* 100 MG PO SCH ×2 (07:35→21:10)
--- NOTE | 2016-12-19 11:28 | PN ---
Progress Note - Progress Note SOAP: Subjective: Pt seen and examined. He feels "the same". Passing flatus and liquid stool via ileostomy. Tolerating ivan lisa. No nausea, burping. Objective: af vss abdo: soft/ND/tender at the upper abdomen. Ileostomy, air and liquid output. Assessment: SBO likely partial. DDx resolving sbo. persistent abdo pain but w/o acute abdomen Pt wants transfer to [facility]; transfer in the works Plan: No surgery at this time. Transfer per pt's wishes. will continue to follow while at [facility]
--- NOTE | 2016-12-19 17:27 | PN ---
Subjective Date of Service: 12/19/16 Interval History: Pt has had some liquid stoma output. mostly gas though. abd pain is improved Objective Active Medications: Acetaminophen (Tylenol Tab*) 650 mg PO Q4H PRN PRN Reason: FEVER/PAIN Albuterol (Ventolin 2.5 Mg/3 Ml Neb.Vidhi*) 2.5 mg INH Q2H PRN PRN Reason: SOB/WHEEZING Allopurinol (Zyloprim Tab*) 100 mg PO BID [facility] Last Admin: 12/19/16 07:35 Dose: 100 mg Dexlansoprazole (Dexilant (Nf)) 60 mg PO DAILY [facility] Last Admin: 12/19/16 07:35 Dose: 60 mg Dextrose (D50w Syringe 50 Ml*) 25 gm IV PUSH .FOR FS < 60 - SS PRN PRN Reason: FS < 60 Famotidine (Pepcid Tab*) 20 mg PO BEDTIME [facility] Last Admin: 12/18/16 20:32 Dose: 20 mg Gabapentin (Neurontin Cap(*)) 300 mg PO BID [facility] Last Admin: 12/19/16 07:34 Dose: 300 mg Heparin Sodium (Porcine) (Heparin Vial(*)) 5,000 units SUBCUT Q8HR [facility] Last Admin: 12/19/16 13:45 Dose: Not Given Potassium Chloride/Dextrose (D5w 1/2 Ns Kcl 20 Meq 1000 Ml*) 1,000 mls @ 100 mls/hr IV PER RATE [facility] Levothyroxine Sodium (Synthroid Inj*) 25 mcg IV 0600 [facility] Last Admin: 12/19/16 05:41 Dose: 25 mcg Morphine Sulfate (Morphine Inj (Syringe)*) 2 mg IV Q4H PRN PRN Reason: PAIN - MILD Ondansetron HCl (Zofran Inj*) 4 mg IV Q6H PRN PRN Reason: NAUSEA Sodium Bicarbonate (Sodium Bicarbonate (Antacid)*) 1,300 mg PO BID [facility] Last Admin: 12/19/16 07:33 Dose: 1,300 mg Vital Signs 12/18/16 12/18/16 12/18/16 19:27 20:00 20:32 Temperature 97.3 F Pulse Rate 51 Respiratory 28 16 16 Rate Blood Pressure 141/75 (mmHg) O2 Sat by Pulse 100 Oximetry 12/18/16 12/19/16 12/19/16 22:32 00:00 04:19 Temperature 97.3 F 97.4 F Pulse Rate 57 58 Respiratory 16 16 16 Rate Blood Pressure 121/71 120/71 (mmHg) O2 Sat by Pulse 97 97 Oximetry 12/19/16 12/19/16 12/19/16 07:34 08:00 09:34 Temperature 97.8 F Pulse Rate 54 Respiratory 16 18 18 Rate Blood Pressure 121/81 (mmHg) O2 Sat by Pulse 100 Oximetry 12/19/16 15:26 Temperature 97.8 F Pulse Rate 52 Respiratory 17 Rate Blood Pressure 134/81 (mmHg) O2 Sat by Pulse 100 Oximetry Oxygen Devices in Use Now: None Appearance: 66 yo M in nAD, aAOx3 Eyes: No Scleral Icterus, PERRLA Ears/Nose/Mouth/Throat: NL Teeth, Lips, Gums, Mucous Membranes Moist Neck: NL Appearance and Movements; NL JVP, Trachea Midline Respiratory: Symmetrical Chest Expansion and Respiratory Effort, Clear to Auscultation Cardiovascular: NL Sounds; No Murmurs; No JVD, RRR Abdominal: - - soft, distended, tender in epigastrium and LUQ, stoma in place, BS hypoactive Lymphatic: No Cervical Adenopathy Extremities: No Edema, No Clubbing, Cyanosis Skin: No Rash or Ulcers, No Nodules or Sclerosis Neurological: Alert and Oriented x 3, NL Muscle Strength and Tone Result Diagrams: 12/19/16 06:51 12/19/16 06:51 Microbiology and Other Data: Microbiology 12/15/16 12:26 Urine Culture - Final Urine 12/15/16 15:20 Stool Gross Appearance - Final Stool Shiga Toxin I & II - Final Negative Shiga Toxin 1 & 2 Rotavirus Antigen - Final Negative Rotavirus 12/15/16 15:20 Stool Gross Appearance - Final Stool Stool Lactoferrin - Final Assess/Plan/Problems-Billing Assessment: 66 yo M with h/o ulcerative colitis s/p bowel resection and stoma placement with SBO - Patient Problems (1) Partial small bowel obstruction Comment: Tolerating clear liquids. Continue IV fluids to compensate for high ileostomy output. Dis Pt requests surgery be done by Dr. Burgos at [place]. Dr. Burgos has acceped pt. Awaiting bed availability. (2) Hypothyroidism Comment: Continue IV levothyroxine. TSH 3.73 12/16/16. (3) CKD (chronic kidney disease) Comment: CKD stage III, stable. (4) Ulcerative colitis Comment: S/P colectomy. (5) DM (diabetes mellitus) Comment: pt as insulin pump. Patient is checking his own FS glucose and controlling his insulin pump. (6) HTN (hypertension) Comment: Ramipril on hold. (7) GERD (gastroesophageal reflux disease) Comment: Pt brought his Dexlanoprazole. (8) MIKHAIL (acute kidney injury) Comment: Severe MIKHAIL on admission due to dehydration in part due to high ileostomy output. Resolved. (9) DVT prophylaxis Comment: heparin sc Status and Disposition: Patient accepted in transfer to [place] ([facility]) by Dr. Burgos (surgery). Awaiting bed availability.
[2016-12-19] MEDS: Famotidine TAB* 20 MG PO SCH (21:10)
[2016-12-20 05:37] LABS: BUN/Creatinine Ratio 4.4 (8-20); Calcium 8.9 mg/dL (8.6-10.3); EGFR African American 67.4 (>60); EGFR Non-African American 52.4 (>60)
[2016-12-20] MEDS: Heparin VIAL(*) 5000 UNITS/ML VIAL (FIVE THOUSAND) SUBCUT SCH ×2 (05:37→12:59)
[2016-12-20] MEDS: Levothyroxine INJ* 100 MCG/5 ML VIAL IV SCH (05:37)
[2016-12-20 07:52] VITALS: BP 124/77
[2016-12-20] MEDS: Gabapentin CAP(*) 300 MG PO SCH (09:04)
[2016-12-20] MEDS: DEXLANSOPRAZOLE 60 MG PO SCH (09:05)
[2016-12-20] MEDS: Sodium Bicarbonate (ANTACID)* 650 MG TAB PO SCH (09:05)
[2016-12-20] MEDS: Allopurinol TAB* 100 MG PO SCH (09:05)
[2016-12-20] MEDS: D5W 1/2 NS KCl 20 Meq 1000 ML* 1,000 ML IV SCH (09:11)
--- NOTE | 2016-12-20 12:50 | PN ---
Subjective Date of Service: 12/20/16 Interval History: Pt continues to have crampy abd pain in epigastric region. Less stoma output in the past 24H Objective Active Medications: Acetaminophen (Tylenol Tab*) 650 mg PO Q4H PRN PRN Reason: FEVER/PAIN Albuterol (Ventolin 2.5 Mg/3 Ml Neb.Vidhi*) 2.5 mg INH Q2H PRN PRN Reason: SOB/WHEEZING Allopurinol (Zyloprim Tab*) 100 mg PO BID [facility] Last Admin: 12/20/16 09:05 Dose: 100 mg Dexlansoprazole (Dexilant (Nf)) 60 mg PO DAILY [facility] Last Admin: 12/20/16 09:05 Dose: 60 mg Dextrose (D50w Syringe 50 Ml*) 25 gm IV PUSH .FOR FS < 60 - SS PRN PRN Reason: FS < 60 Famotidine (Pepcid Tab*) 20 mg PO BEDTIME [facility] Last Admin: 12/19/16 21:10 Dose: 20 mg Gabapentin (Neurontin Cap(*)) 300 mg PO BID [facility] Last Admin: 12/20/16 09:04 Dose: 300 mg Heparin Sodium (Porcine) (Heparin Vial(*)) 5,000 units SUBCUT Q8HR [facility] Last Admin: 12/20/16 05:37 Dose: Not Given Potassium Chloride/Dextrose (D5w 1/2 Ns Kcl 20 Meq 1000 Ml*) 1,000 mls @ 100 mls/hr IV PER RATE [facility] Last Admin: 12/20/16 09:11 Dose: 100 mls/hr Levothyroxine Sodium (Synthroid Inj*) 25 mcg IV 0600 [facility] Last Admin: 12/20/16 05:37 Dose: 25 mcg Morphine Sulfate (Morphine Inj (Syringe)*) 2 mg IV Q4H PRN PRN Reason: PAIN - MILD Ondansetron HCl (Zofran Inj*) 4 mg IV Q6H PRN PRN Reason: NAUSEA Sodium Bicarbonate (Sodium Bicarbonate (Antacid)*) 1,300 mg PO BID [facility] Last Admin: 12/20/16 09:05 Dose: 1,300 mg Vital Signs 12/19/16 12/19/16 12/19/16 15:26 20:00 21:09 Temperature 97.8 F Pulse Rate 52 Respiratory 17 18 18 Rate Blood Pressure 134/81 (mmHg) O2 Sat by Pulse 100 Oximetry 12/19/16 12/19/16 12/20/16 23:09 23:43 04:04 Temperature 97.8 F 98.3 F Pulse Rate 60 55 Respiratory 18 16 16 Rate Blood Pressure 102/59 121/72 (mmHg) O2 Sat by Pulse 100 97 Oximetry 12/20/16 12/20/16 12/20/16 07:51 08:00 09:04 Temperature 97.5 F Pulse Rate 54 Respiratory 20 20 18 Rate Blood Pressure 124/77 (mmHg) O2 Sat by Pulse 98 Oximetry Oxygen Devices in Use Now: None Appearance: 66 yo M in nAd, aAOx3 Eyes: No Scleral Icterus, PERRLA Ears/Nose/Mouth/Throat: NL Teeth, Lips, Gums, Mucous Membranes Moist Neck: NL Appearance and Movements; NL JVP, Trachea Midline Respiratory: Symmetrical Chest Expansion and Respiratory Effort, Clear to Auscultation Cardiovascular: NL Sounds; No Murmurs; No JVD, RRR Abdominal: - - soft, distended, minimally tender in epigastric region, no rebound, no guarding, BS hypoactive. Stome in place -bag with gas andliquid stool Lymphatic: No Cervical Adenopathy Extremities: No Edema, No Clubbing, Cyanosis Skin: No Rash or Ulcers, No Nodules or Sclerosis Neurological: Alert and Oriented x 3, NL Muscle Strength and Tone Result Diagrams: 12/19/16 06:51 12/20/16 04:58 Microbiology and Other Data: Microbiology 12/15/16 12:26 Urine Culture - Final Urine 12/15/16 15:20 Stool Gross Appearance - Final Stool Shiga Toxin I & II - Final Negative Shiga Toxin 1 & 2 Rotavirus Antigen - Final Negative Rotavirus 12/15/16 15:20 Stool Gross Appearance - Final Stool Stool Lactoferrin - Final Assess/Plan/Problems-Billing Assessment: 66 yo M with h/o ulcerative colitis s/p bowel resection and stoma placement with SBO - Patient Problems (1) Partial small bowel obstruction Comment: Tolerating clear liquids. Continue IV fluids to compensate for high ileostomy output. Pt requests surgery be done by Dr. Burgos at [facility]. Dr. Burgos has acceped pt. Awaiting bed availability. (2) Hypothyroidism Comment: Continue IV levothyroxine. TSH 3.73 12/16/16. (3) CKD (chronic kidney disease) Comment: CKD stage III, stable. (4) Ulcerative colitis Comment: S/P colectomy. (5) DM (diabetes mellitus) Comment: pt as insulin pump. Patient is checking his own FS glucose and controlling his insulin pump. (6) HTN (hypertension) Comment: Ramipril on hold. (7) GERD (gastroesophageal reflux disease) Comment: Pt brought his Dexlansoprazole. (8) MIKHAIL (acute kidney injury) Comment: Severe MIKHAIL on admission due to dehydration in part due to high ileostomy output. Resolved. (9) DVT prophylaxis Comment: heparin sc Status and Disposition: Patient accepted in transfer to [facility] ([facility]) by Dr. Burgos (surgery). Awaiting bed availability.
== END 2016-12-20 15:40 | disposition short-term general hospital (02) | DRG 254 ==
LOC: ED 07:06 → MED 11:42
PROVIDERS: ADMIT Hospitalist; ATTEND Internal Medicine
DX: K43.3 Parastomal hernia with obstruction, without gangrene (principal); N17.9 Acute kidney failure, unspecified; E11.22 Type 2 diabetes mellitus with diabetic chronic kidney disease; J44.9 Chronic obstructive pulmonary disease, unspecified; E83.42 Hypomagnesemia; K51.90 Ulcerative colitis, unspecified, without complications; I12.9 Hypertensive chronic kidney disease with stage 1 through stage 4 chronic kidney disease, or unspecified chronic kidney disease; N18.3 Chronic kidney disease, stage 3 (moderate); K21.9 Gastro-esophageal reflux disease without esophagitis; E03.9 Hypothyroidism, unspecified; E78.5 Hyperlipidemia, unspecified; Z93.2 Ileostomy status; N20.0 Calculus of kidney; G47.33 Obstructive sleep apnea (adult) (pediatric); Z79.82 Long term (current) use of aspirin; Z79.84 Long term (current) use of oral hypoglycemic drugs; Z79.4 Long term (current) use of insulin; Z79.899 Other long term (current) drug therapy; Z88.4 Allergy status to anesthetic agent; Z80.42 Family history of malignant neoplasm of prostate; Z87.891 Personal history of nicotine dependence; Z96.41 Presence of insulin pump (external) (internal); E87.6 Hypokalemia; E86.0 Dehydration; I65.8 Occlusion and stenosis of other precerebral arteries
CPT/HCPCS: 36415; 74020; 74176; 80048; 80053; 81003; 81015; 82150; 83605; 83630; 83690; 83735; 83880; 84443; 85025; 85610; 86140; 87045; 87046; 87077; 87086; 87425; 87449; 87899; 93005; A9270-GY; J1644; J3480

== ENCOUNTER 2018-02-07 17:39 | Emergency (ER) | payer BC ==
[2018-02-07 18:12] VITALS: BP 150/87
[2018-02-07] MEDS ORDERED: Tetracaine 0.5% OPTH.SOL 4 ML* 1 DROP BTL LEFT EYE ONE (18:16)
[2018-02-07] MEDS ORDERED: Fluorescein Sod TOPICAL 0.6* 0.6 MG TEST OPHTHALMIC ONE (18:17)
[2018-02-07] MEDS ORDERED: Eye Irrigation Solution 30 ML BOTTLE LEFT EYE ONE (18:17)
--- NOTE | 2018-02-07 18:17 | UC ---
Eye Complaint HPI - HPI Summary HPI Summary: 67 y/o male presents to the urgent care c/o left eye FB sensation w/ redness and mild yellowish drainage s/p griding a metal around 1500pm today. Pt reports he usually wear the safety goggles, but he removed them for one movement and he thinks he got something. Mild pain the the upper eyelid. Pain is 1/10 at touch. Pt denies fever, photophobia, LUCAS, dizziness, SOB, chest pain,abdominal pain, N/V /D Pt states UTD w/ Tetanus vaccines, but he can't recall if it was 2-3 years ago. - History of Current Complaint Chief Complaint: UCEye Stated Complaint: FOREIGN BODY IN EYE Time Seen by Provider: 02/07/18 18:16 Hx Obtained From: Patient Onset/Duration: Sudden Onset, Lasting Hours - 5hrs Timing: Constant Severity Initially: Mild Severity Currently: Mild Pain Intensity: 1 Pain Scale Used: 0-10 Numeric Location of Injury: Conjunctiva, Eye Lid (upper) Character: Foreign Body Sensation Aggravating Factor(s): Blinking Alleviating Factor(s): Nothing Associated Signs And Symptoms: Positive: Drainage (Purulent). Negative: Photophobia, Fever, Swelling - Risk Factors Penetrating Injury Risk Factor: Grinding - metal Globe Rupture Risk Factors: Negative Acute Glaucoma Risk Factors: Negative Optic Artery Occlusion Risk Factors: Negative - Allergies/Home Medications Allergies/Adverse Reactions: Allergies Allergy/AdvReac Type Severity Reaction Status Date / Time midazolam [From Versed] Allergy Altered Verified 02/07/18 18:13 Mental Status Home Medications: Home Medications amLODIPine TAB* [Norvasc 5 mg TAB*] 5 mg PO DAILY 02/07/18 [History Confirmed ] PMH/Surg Hx/FS Hx/Imm Hx Previously Healthy: Yes Endocrine History: Diabetes, Hypothyroidism, Dyslipidemia Other Endocrine History: Gout Cardiovascular History: Hypertension GI/ History: Gastroesophageal Reflux Other GI/ History: BPH Other History Of: Anticoagulant Therapy - low dose ASA - Surgical History Surgical History: Yes Surgery Procedure, Year, and Place: 01/1996 - [facility] [place] - (right) retrograde pyelography w/ stent placement. 05/2003 - [facility] [place] - small bowel obstruction, restruction of ileostomy. 1992-ILEOSTOMY. POLYPS REMOVED YEARLY - Family History Known Family History: Positive: Cardiac Disease, Hypertension, Diabetes Family History: Prostate cancer - Social History Occupation: Employed Full-time Lives: With Family Alcohol Use: None Substance Use Type: None Smoking Status (MU): Former Smoker Amount Used/How Often: 3 1/2 PPD X 30 YEARS When Did the Patient Quit Smoking/Using Tobacco: 1989 - Immunization History Most Recent Influenza Vaccination: fall 2015 Most Recent Pneumonia Vaccination: has received but cant recall year Review of Systems Constitutional: Negative Skin: Negative Eyes: Drainage - yellowish, Eye Redness - left eye, Other - FB body sensation s/ p griding metal ENT: Negative Respiratory: Negative Cardiovascular: Negative Gastrointestinal: Negative Genitourinary: Negative Motor: Negative Neurovascular: Negative Musculoskeletal: Negative Neurological: Negative Psychological: Negative Is Patient Immunocompromised?: No All Other Systems Reviewed And Are Negative: Yes Physical Exam - Summary Physical Exam Summary: Vital Signs Reviewed: Yes General: Well appearing, well nourished obese male in no apparent pain distress Eyes: Positive: Pt w/ LF conjunctiva red w/ yellowish eye discharge. B/L PERRLA, EOMI w/o any nystagmus or strabismus. Fundi appears benign. Disks are well delineated. There are no hemorrhages or exudates. Visual acuity is 20/20 bilaterally, and visual monsivais are within normal limits. No foreign body under eyelids observed with naked eye. Discrete break in the mid internal upper eyelid w/ mild swelling and tender to palpation on examination. eyelashes clear. mild tearing and yellowish drainage observed. No ciliary flush. No chemosis, No photophobia. Normal fundoscopic exam; no proptosis, exophthalmos, nystagmus. ENT: Positive: Normal ENT inspection, Hearing grossly normal, Pharynx normal, Nasal congestion, Nasal drainage - clear, TMs normal - B/L external ear canal clear , TM's WNL. Negative: Tonsillar swelling, Tonsillar exudate Neck: Positive: Supple, Nontender, No Lymphadenopathy Respiratory: Positive: Chest nontender, Lungs clear, Normal breath sounds, No respiratory distress Cardiovascular: Positive: RRR, No Murmur, Pulses Normal, Brisk Capillary Refill Abdomen Description: Positive: Nontender, No Organomegaly, Soft. Negative: CVA Tenderness (R), CVA Tenderness (L) Bowel Sounds: Positive: Present Musculoskeletal: Positive: Strength Intact, ROM Intact, No Edema Neurological Exam: Normal Psychological Exam: Normal Skin Exam: Normal Triage Information Reviewed: Yes Vital Signs: Initial Vital Signs Temp 98.5 F 02/07/18 18:06 Pulse 57 02/07/18 18:06 Resp 16 02/07/18 18:06 BP 150/87 02/07/18 18:06 Pulse Ox 98 02/07/18 18:06 Eye Complaint Course/Dx - Course Course Of Treatment: 67 y/o male presents to the urgent care c/o left eye FB sensation w/ redness and mild yellowish drainage s/p griding a metal around 1500pm today. Pt reports he usually wear the safety goggles, but he removed them for one movement and he thinks he got something. Mild pain the the upper eyelid. Pain is 1/10 at touch. Pt denies fever, photophobia, LUCAS, dizziness, SOB , chest pain,abdominal pain, N/V/D Pt states UTD w/ Tetanus vaccines, but he can't recall if it was 2-3 years ago.Hx obtained. Pt w/ LF conjunctiva red w/ yellowish eye discharge. B/L PERRLA, EOMI w/o any nystagmus or strabismus. Fundi appears benign. Disks are well delineated. There are no hemorrhages or exudates. Visual acuity is 20/20 bilaterally, and visual monsivais are within normal limits. No foreign body under eyelids observed with naked eye. Discrete break in the mid internal upper eyelid w/ mild swelling and tender to palpation on examination. 2 drops of Tetracaine optha drops placed on Pts left eye, then irrigated with saline drops to flush any foreign particles, then fluorescein instillation and examination with a slit lamp. No FB or corneal abrasion observed. No Foreign body identified. After procedure Pt felt better. Pt w/ left Bacterial conjunctivitis and a discrete cut in left uppwer eye lid s/ p griding metal. Pt Rx Erythromycin ophthalmic ointment and advised to f/u at [facility] [place] if not improvement. Pt's BP is elevated today advised to decrease salt in diet, monitor BP and f/u with PCP for further management. Pt understood and agreed w/ paln of care and left clinic ambulating. - Differential Dx/Diagnosis Differential Diagnosis/HQI/PQRI: Corneal Abrasion, Foreign Body, Periorbital Cellulitis, Other Provider Diagnoses: 1- left upper eyelid discrete cut s/p injury. 2-left eye conjuctivitis. 3-Uncontrolled HTN Discharge - Sign-Out/Discharge Documenting (check all that apply): Patient Departure - D/C home - Discharge Plan Condition: Stable Disposition: HOME Prescriptions: Erythromycin TOPICAL GEL* [Erythromycin OPTH OINT*] 1 applic TOPICAL TID #1 oint Patient Education Materials: Eye Foreign Body (ED), Low-Sodium Diet (ED), Conjunctivitis (ED) Referrals: [facility] [place] [facility] REFERRAL [Outside] - If Needed Lisandro Montenegro MD [Medical Doctor] - If Needed Additional Instructions: 1-No foreign body observed or corneal abrasion today . Please apply ophthalmic oint. as instructed and finish the full course of treatment to avoid infection. 2-If you do not improve or if symptoms worsen please f/u with bread [employer] [facility] Dr Montenegro for further evaluation and treatment. 3-Your BP is elevated today. please decrease salt in your diet, monitor BP and if it continues to be elevated please f/u with your PCP for further management - Billing Disposition and Condition Condition: STABLE Disposition: Home
== END 2018-02-07 19:15 | disposition home or self-care (01) ==
LOC: UCEAST 17:39
DX: Z87.891 Personal history of nicotine dependence (principal); S01.122A Laceration with foreign body of left eyelid and periocular area, initial encounter; X58.XXXA Exposure to other specified factors, initial encounter; Y93.89 Activity, other specified; Y92.9 Unspecified place or not applicable; E11.9 Type 2 diabetes mellitus without complications; H10.9 Unspecified conjunctivitis; I10 Essential (primary) hypertension; Z88.4 Allergy status to anesthetic agent; Z79.01 Long term (current) use of anticoagulants
CPT/HCPCS: 99212; A9270-GY; G0463

== ENCOUNTER 2019-01-27 11:15 | Emergency (ER) | payer BC ==
--- NOTE | 2019-01-27 12:07 | ED ---
GI/ HPI - HPI Summary HPI Summary: This pt is a 68 y/o male, accompanied by Navi, [facility]/o left lower back pain since last night. Pt reports he had surgery on 01/11/19 at [facility] for a second ileostomy and peristomal hernia repair. Pt states the plastic surgery team and colorectal team performed his surgery. He had his first ileostomy due to ulcerative colitis that couldn't be controlled. He notes he was discharged on 01/23/19, with a wound vac. notes pt was left with only [address] and she has been changing pt' s bandages/dressings every morning. denies any leaking. Pt saw his ileostomy nurse, colorectal GLASS DESIGNER, and plastic surgeon yesterday 01/26/19. Upon returning home last night pt began to have left lower back pain. He currently rates his pain 8/10 in severity. Pt states he is able to void normally, denies any urinary complaints. Denies cough, fever. PMHx includes SBO (2 years ago), kidney stones. Pt sees Dr. Krystal Fulton, subassemblies wirer, at [facility] for liver level control. Denies hx of MRSA. Home Medications Medication Instructions Recorded Confirmed Type Allopurinol TAB* [Zyloprim TAB*] 100 mg PO BID 06/30/12 01/27/19 History Ergocalciferol CAP* [Drisdol CAP*] 50,000 units PO Q30D 06/30/12 01/27/19 History Ramipril CAP* [Altace CAP*] 5 mg PO DAILY 06/30/12 01/27/19 History Aspirin EC TAB* [Ecotrin EC Low 81 mg PO DAILY 12/15/16 01/27/19 History Dose 81 MG*] Dexlansoprazole (NF) [Dexilant 60 mg PO DAILY 12/15/16 01/27/19 History (NF)] Meloxicam(NF) [Mobic(NF)] 15 mg PO DAILY WITH MEAL 12/15/16 01/27/19 History Ranitidine TAB (NF) [Zantac TAB 150 mg PO BEDTIME 12/15/16 01/27/19 History (NF)] Sodium Bicarbonate (ANTACID)* 1,300 mg PO BID 12/15/16 01/27/19 History Tamsulosin CAP* [Flomax CAP*] 0.4 mg PO DAILY PRN 12/15/16 01/27/19 History Insulin LISPRO* [HumaLOG*] 0 units SUBCUT DIRECTED 01/27/19 01/27/19 History Levothyroxine TAB* [Synthroid TAB*] 75 mcg PO DAILY 01/27/19 01/27/19 History Loperamide CAP* [Imodium CAP*] 2 mg PO QID PRN 01/27/19 01/27/19 History Ondansetron TAB* [Zofran 4 MG Tab*] 4 mg PO Q6H PRN 01/27/19 01/27/19 History Simethicone TAB* [Mylicon TAB*] 80 mg PO Q6HR PRN 01/27/19 01/27/19 History Simvastatin TAB(NF) [Zocor(NF)] 20 mg PO DAILY 01/27/19 01/27/19 History amLODIPine TAB* [Norvasc 5 mg TAB*] 10 mg PO DAILY 01/27/19 01/27/19 History - History of Current Complaint Chief Complaint: EDFlankPain Time Seen by Provider: 01/27/19 11:31 Stated Complaint: BACK PAIN PER Hx Obtained From: Patient Onset/Duration: Started Days Ago - 1, Still Present Timing: Lasting Days - 1 Current Severity: Moderate Pain Intensity: 8 Location of Pain: Other - left lower back Associated Signs and Symptoms: Negative: Fever, Cough Aggravating Factor(s): Nothing Alleviating Factor(s): Nothing - Additional Pertinent History Primary Care Physician: [id number] - Allergy/Home Medications Allergies/Adverse Reactions: Allergies Allergy/AdvReac Type Severity Reaction Status Date / Time midazolam [From Versed] Allergy Altered Verified 01/27/19 11:22 Mental Status Home Medications: Home Medications Insulin LISPRO* [HumaLOG*] 0 units SUBCUT DIRECTED 01/27/19 [History Confirmed 01/27/19] Levothyroxine TAB* [Synthroid TAB*] 75 mcg PO DAILY 01/27/19 [History Confirmed 01/27/19] Loperamide CAP* [Imodium CAP*] 2 mg PO QID PRN 01/27/19 [History Confirmed 01/27] Ondansetron TAB* [Zofran 4 MG Tab*] 4 mg PO Q6H PRN 01/27/19 [History Confirmed 01/27/19] Simethicone TAB* [Mylicon TAB*] 80 mg PO Q6HR PRN 01/27/19 [History Confirmed ] Simvastatin TAB(NF) [Zocor(NF)] 20 mg PO DAILY 01/27/19 [History Confirmed 01/27] amLODIPine TAB* [Norvasc 5 mg TAB*] 10 mg PO DAILY 01/27/19 [History Confirmed 01/27/19] PMH/Surg Hx/FS Hx/Imm Hx Endocrine/Hematology History: Reports: Hx Anticoagulant Therapy - low dose ASA, Hx Diabetes - TYPE II- INSULIN DEPENDENT, Hx Thyroid Disease - Dang's Comment Only: Hx Anemia - ?BORDERLINE Cardiovascular History: Reports: Hx Coronary Artery Disease, Hx Hypercholesterolemia, Hx Hypertension - ON MEDICATION FOR, Other Cardiovascular Problems/Disorders - bilateral lower leg edema Respiratory History: Reports: Hx Sleep Apnea, Other Respiratory Problems/ Disorders - COPD? GI History: Reports: Hx Gastroesophageal Reflux Disease, Hx Irritable Bowel, Hx Obstructive Bowel - 05/2003, Hx Ileostomy - proctocolectomy w/illeostomy for ulcerative colitis, Other GI Disorders - ulcerative colitis/ILEOSTOMY History: Reports: Hx Kidney Stones - HX OF, Other Problems/Disorders - STATES HAS SOME KIDNEY IMPAIRMENT Musculoskeletal History: Reports: Hx Arthritis, Hx Bursitis - SHOULDERS, Hx Tendonitis - ELBOWS, Other Musculoskeletal History Sensory History: Reports: Hx Cataracts - BILATERAL, Hx Contacts or Glasses - GLASSES-READING Denies: Hx Hearing Aid Opthamlomology History: Reports: Hx Cataracts - BILATERAL, Hx Contacts or Glasses - GLASSES-READING Neurological History: Reports: Other Neuro Impairments/Disorders - diabetic neuropathy bilateral feet - Surgical History Surgical History: Yes Surgery Procedure, Year, and Place: 01/1996 - [facility] - (right) retrograde pyelography w/ stent placement. 05/2003 - [facility] - small bowel obstruction, restruction of ileostomy. 1992-ILEOSTOMY. POLYPS REMOVED YEARLY. 01/11/19 - ileostomy x2 Hx Anesthesia Reactions: Yes - DIFFICULTY REMEMBERING WORDS FOR THE FIRST WEEK AFTER Infectious Disease History: No Infectious Disease History: Denies: Traveled Outside the [place] in Last 30 Days - Family History Known Family History: Positive: Cardiac Disease, Hypertension, Diabetes, Other - Prostate cancer Family History: Prostate cancer - Social History Alcohol Use: None Substance Use Type: Reports: None Smoking Status (MU): Former Smoker Amount Used/How Often: 3 1/2 PPD X 30 YEARS Review of Systems Negative: Fever Negative: Cough Positive: no symptoms reported Musculoskeletal: Other - POSITIVE: left lower back pain All Other Systems Reviewed And Are Negative: Yes Physical Exam - Summary Physical Exam Summary: Appearance: Ill-appearing, moderate pain distress, well-nourished Skin: Warm, color reflects adequate perfusion, dry Head: Normal Head/Face inspection, atraumatic Eyes: Conjunctiva clear ENT: Normal inspection Neck: Supple, no nodes, no JVD Respiratory: Lungs clear, normal breath sounds, no respiratory distress Cardio: RRR, No murmur, pulses normal, brisk capillary refill Abdomen: Soft, nontender. Wound vac with minimal drainage less than 25 cc. Bowel sounds: Present Musculoskeletal: Left lumbar tenderness, no calf tenderness, no edema. Psychological: Normal Neuro: Alert, muscle tone normal, no focal deficit Triage Information Reviewed: Yes Vital Signs On Initial Exam: Initial Vitals Temp Pulse Resp BP Pulse Ox 98.1 F 82 16 119/83 96 01/27/19 11:18 01/27/19 11:18 01/27/19 11:18 01/27/19 11:18 01/27/19 11:18 Vital Signs Reviewed: Yes Diagnostics - Vital Signs Vital Signs Temp Pulse Resp BP Pulse Ox 01/27/19 11:18 98.1 F 82 16 119/83 96 - Laboratory Result Diagrams: 01/27/19 12:26 01/27/19 12:26 Lab Statement: Any lab studies that have been ordered have been reviewed, and results considered in the medical decision making process. - CT Abdomen/Pelvis CT CT Interpretation Completed By: Radiologist Summary of CT Findings: IMPRESSION: 1. 0.7 cm calculus of the mid third of the left ureter with mild left-sided hydronephrosis. 2. Ileostomy with post surgical change to the anterior abdominal wall. 3. Cholelithiasis. Dr. Hurtado has reviewed this report. Re-Evaluation - Re-Evaluation First Eval Re-Evaluation Time: 12:56 Change: Improved Comment: He reports his pain is 2/10. His pain was 8/10 when he came in. He's been without Allopurinol the whole time he was hospitalized in [place]. His pain has been controlled. He declined pain medications at this time. Requested IV fluids for hydration. Took Flomax this am but states it was "very old." Second Eval Re-Evaluation Time: 13:49 Change: Improved Comment: Pain is controlled. Discussed the news of kidney stone with patient. He is agreeable to go to [place] via private car if he continues feeling well. Third Eval Re-Evaluation Time: 15:31 Change: Improved Comment: Discussed discharge plan with the patient. He will be going to [facility] ER via private car. Pt understands and agrees. GIGU Course/Dx - Course Assessment/Plan: Pt is a 68 y/o male, accompanied by Navi, presenting to [facility] c/o left lower back pain since last night. Pt reports she had surgery on at [facility] for a second ileostomy and peristomal hernia. He was discharged home on 01/23/19. Pt with hx of kidney stones. Pts medications reviewed this visit. Nurses notes reviewed. Allergies noted. Lab results remarkable for hemoglobin of 13.4, hematocrit of 39, creatinine of 2.13, glucose of 142, CRP of 27.91. Urinalysis shows 1+ protein, trace ketones, 1+ WBC. Abdomen/Pelvis CT shows 1. 0.7 cm calculus of the mid third of the left ureter with mild left-sided hydronephrosis. 2. Ileostomy with post surgical change to the anterior abdominal wall. 3. Cholelithiasis. In the ED course the patient was given 2L of NS. Patient did no require any pain medications while in the ED. Discussed the case with Dr. Fulton, pt's subassemblies wirer at [facility], who recommends discharging the pt to [facility]. Dr. Fulton did not want antibiotics, tamsulosin or allopurinol for the patient now. [15:32] Courtesy call was made to RYAN Ybarra at [facility], who is the accepting nurse for the pt. This is NOT an EMTALA transfer. Dr. Chauhan is the ED attending at [facility]. Amada reports that they do have urology senior loss control specialist. I discussed the discharge plan with the patient and he will be going to [facility] ED via private car. He understands and is agreeable to the plan. - Diagnoses Provider Diagnoses: Kidney stone, Hydronephrosis - Physician Notifications Discussed Care Of Patient With: Dr. Krystal Fulton Time Discussed With Above Provider: 14:33 Instructed by Provider To: Other - Discussed the case with Dr. Fulton, pt's subassemblies wirer, who recommends discharging pt to [facility]. [15:32] Courtesy call to RYAN Ybarra at [facility], who is the accepting nurse for the pt. NOT an EMTALA transfer. Dr. Chauhan is the ED attending at [facility]. Amada reports that they do have urology senior loss control specialist. Discharge - Sign-Out/Discharge Documenting (check all that apply): Patient Departure - Discharge home Patient Received Moderate/Deep Sedation with Procedure: No - Discharge Plan Condition: Stable Disposition: HOME Patient Education Materials: Kidney Stones (ED), Hydronephrosis (ED) Referrals: [facility] [Outside] Juan Luis Ernst MD [Medical Doctor] - If Needed Additional Instructions: We spoke with Dr. Fulton and she wants you to go directly to the [facility] ER. Dr. Fulton and Dr. Hurtado felt you were OK to go by private car. You were given 2 liters of saline while you were in the [facility], but you did not require any pain medication while in the [facility] ER. Keep your self without eating, "npo" in case they want to do a procedure tonight. Dr. Fulton did not want antibiotics or tamsulosin or allopurinol now. You should be able to have them upload the images of your CT through [facility], however we are giving you a disk of your CT also. The labs and urine results will print out with these papers. Please bring all of these papers directly to [facility] and the disk. Return to [facility] if you have any new or worsening symptoms, if needed. - Attestation Statements Document Initiated by Scribe: Yes Documenting Scribe: Betzaida Garcia Provider For Whom Rommel is Documenting (Include Credential): Genny Hurtado MD Scribe Attestation: Betzaida Barrera, scribed for Genny Hurtado MD on 01/27/19 at 1609. Status of Scribe Document: Ready
[2019-01-27 12:41] LABS: ABS Eosinophils 0.1 10^3/ul (0-0.6); ABS Monocytes 0.8 10^3/ul (0-0.8); ABS Neutrophils 7.6 10^3/ul (1.5-7.7); Eosinophil % 1.5 %; Hematocrit 39 % (42-52); Hemoglobin 13.4 g/dL (14.0-18.0); Lymphocyte % 10.7 %; Mean Corpuscular HGB Conc 35 g/dL (31-36); Mean Corpuscular Hemoglobin 31 pg (27-31); Mean Corpuscular Volume 90 fL (80-94); Mean Platelet Volume 7.7 fL (7.4-10.4); Platelet Count 382 10^3/uL (150-450); Red Blood Count 4.32 10^6 /uL (4.18-5.48); Red Cell Distribution Width 14 % (10-15); White Blood Count 9.6 10^3/uL (3.5-10.8)
[2019-01-27 12:49] LABS: Urine Appearance Clear; Urine Bacteria Absent (Absent); Urine Bilirubin Negative (Negative); Urine Blood Negative (Negative); Urine Color Yellow; Urine Glucose Negative (Negative); Urine Ketones Trace (Negative); Urine Nitrite Negative (Negative); Urine Protein 1+(30 mg/dL) (Negative); Urine Red Blood Cell Trace(0-2/hpf) (Absent); Urine Specific Gravity 1.028 (1.010-1.030); Urine Urobilinogen Negative (Negative); Urine White Blood Cell 1+(6-10/hpf) (Absent)
[2019-01-27 12:58] LABS: Albumin 3.7 g/dL (3.2-5.2); Albumin/Globulin Ratio 1.1 (1-3); C Reactive Protein 27.91 mg/L (<8.01); EGFR African American 37.6 (>60); EGFR Non-African American 31.1 (>60); Globulin 3.5 g/dL (2-4); Potassium 3.5 mmol/L (3.5-5.0); Total Bilirubin 0.9 mg/dL (0.2-1.0); Total Protein 7.2 g/dL (6.4-8.9)
[2019-01-27] MEDS ORDERED: NS 0.9% 1000 ML** 1,000 ML IV ONE ×2 (13:08→13:52)
[2019-01-27 15:27] VITALS: BP 129/88
== END 2019-01-27 15:26 | disposition home or self-care (01) ==
LOC: ED 11:15
DX: N13.2 Hydronephrosis with renal and ureteral calculous obstruction (principal); M54.5 Low back pain; Z79.01 Long term (current) use of anticoagulants; I25.10 Atherosclerotic heart disease of native coronary artery without angina pectoris; I10 Essential (primary) hypertension; G47.30 Sleep apnea, unspecified; Z87.442 Personal history of urinary calculi; E11.9 Type 2 diabetes mellitus without complications; Z79.4 Long term (current) use of insulin; E07.9 Disorder of thyroid, unspecified; K21.9 Gastro-esophageal reflux disease without esophagitis; Z87.891 Personal history of nicotine dependence
CPT/HCPCS: 36415; 74176; 80053; 81003; 81015; 83605; 85025; 86140; 87040; 87086; 96360; 96361; 99283

== ENCOUNTER 2019-12-21 11:28 | Observation (INO) ==
[2019-12-21] MEDS ORDERED: Ondansetron 4 mg VIAL 2 MG/ML 2 ml VIAL IV ONE ×2 (11:49→15:11)
[2019-12-21] MEDS ORDERED: Lactated Ringers 1000 ml BAG 1,000 ML IV ONE (11:49)
[2019-12-21] MEDS ORDERED: Famotidine IV 10 MG/ML 2 ml VIAL (20 mg) IV SLOW PU ONE (11:50)
[2019-12-21 12:17] LABS: ABS Eosinophils 0.1 10^3/ul (0-0.6); ABS Lymphocytes 0.6 10^3/ul (1.0-4.8); ABS Monocytes 0.4 10^3/ul (0-0.8); Eosinophil % 0.5 %; Hematocrit 45 % (42-52); Hemoglobin 15.5 g/dL (14.0-18.0); Lymphocyte % 5.2 %; Mean Corpuscular HGB Conc 34 g/dL (31-36); Mean Corpuscular Hemoglobin 31 pg (27-31); Mean Corpuscular Volume 89 fL (80-94); Mean Platelet Volume 8.2 fL (7.4-10.4); Nucleated Red Blood Cells % 0.1; Platelet Count 216 10^3/uL (150-450); Red Cell Distribution Width 14 % (10-15); White Blood Count 11.7 10^3/uL (3.5-10.8)
[2019-12-21 12:22] LABS: INR 1.1 (0.82-1.09)
[2019-12-21 12:32] LABS: Albumin 4.4 g/dL (3.2-5.2); Albumin/Globulin Ratio 1.6 (1-3); BUN/Creatinine Ratio 17.9 (8-20); Calcium 9.3 mg/dL (8.6-10.3); EGFR African American 78.7 (>60); Globulin 2.8 g/dL (2-4); Indirect Bilirubin 1.2 mg/dL (0.3-1.0); Potassium 3.9 mmol/L (3.5-5.0); Total Bilirubin 1.5 mg/dL (0.2-1.0); Total Protein 7.2 g/dL (6.4-8.9)
[2019-12-21] MEDS ORDERED: Iodixanol (CONTRAST) 320 MG/ML 100 ML SDV IV ONE (14:36)
[2019-12-21] MEDS ORDERED: Morphine 4 MG/ML VIAL (1 ml) IV ONE (15:11)
[2019-12-21] MEDS ORDERED: NS 0.9% 1000 ml BAG 400 ML IV SCH (16:15)
[2019-12-21 17:53] LABS: Magnesium 1.6 mg/dL (1.9-2.7)
[2019-12-21] MEDS: Ondansetron 4 mg VIAL 2 MG/ML 2 ml VIAL IV PRN ×2 (19:18→23:45)
[2019-12-21] MEDS ORDERED: Sodium Bicarb 650 mg (ANTACID) TAB PO SCH (21:00)
[2019-12-22 05:13] LABS: ABS Eosinophils 0.1 10^3/ul (0-0.6); ABS Monocytes 0.7 10^3/ul (0-0.8); Eosinophil % 1.3 %; Hematocrit 41 % (42-52); Hemoglobin 14.2 g/dL (14.0-18.0); Lymphocyte % 11.1 %; Mean Corpuscular HGB Conc 35 g/dL (31-36); Mean Corpuscular Hemoglobin 31 pg (27-31); Mean Corpuscular Volume 88 fL (80-94); Mean Platelet Volume 8.1 fL (7.4-10.4); Nucleated Red Blood Cells % 0.1; Platelet Count 196 10^3/uL (150-450); Red Cell Distribution Width 14 % (10-15); White Blood Count 9.3 10^3/uL (3.5-10.8)
[2019-12-22 05:27] LABS: BUN/Creatinine Ratio 14.6 (8-20); Calcium 8.5 mg/dL (8.6-10.3); EGFR Non-African American 77.7 (>60); Potassium 3.4 mmol/L (3.5-5.0)
[2019-12-22] MEDS ORDERED: Sodium Bicarb 650 mg (ANTACID) TAB PO SCH (06:00)
[2019-12-22] MEDS ORDERED: DEXLANSOPRAZOLE 60 MG PO SCH (06:00)
[2019-12-22 09:00] VITALS: BP 117/70
== END 2019-12-22 14:30 | disposition home or self-care (01) ==
LOC: SSU 11:28 → ED 11:28 → SSU 17:55
PROVIDERS: ADMIT Internal Medicine; ATTEND Hospitalist

== ENCOUNTER 2024-07-01 08:49 | Observation (INO) ==
[2024-07-01 09:29] LABS: Urine Appearance Clear; Urine Bilirubin Negative (Negative); Urine Blood Negative (Negative); Urine Color Light-Yellow; Urine Glucose 2+ (>=150 mg/dL) (Negative); Urine Ketones Negative (Negative); Urine Nitrite Negative (Negative); Urine Protein 1+ (>=30 mg/dL) (Negative); Urine Specific Gravity 1.021 (1.002-1.030); Urine Urobilinogen Negative (Negative)
[2024-07-01 10:03] LABS: Urine Bacteria Absent /HPF (Absent); Urine Red Blood Cell Trace(0-2/hpf) /HPF (0-Trace); Urine White Blood Cell Trace(0-5/hpf) /HPF (0-Trace)
[2024-07-01] MEDS: NS 0.9% 1000 ml BAG 1,000 ML IV ONE (10:04)
[2024-07-01] MEDS: Ondansetron 4 mg VIAL 2 MG/ML 2 ml VIAL IV ONE ×2 (10:04→11:46)
[2024-07-01 10:40] LABS: ABS Eosinophils 0.1 10^3/uL (0.0-0.5); ABS Lymphocytes 0.9 10^3/uL (1.0-4.8); ABS Monocytes 0.5 10^3/uL (0.0-1.1); ABS Neutrophils 9.2 10^3/uL (1.5-7.6); Eosinophil % 0.5 %; Hematocrit 35.7 % (38-53); Hemoglobin 12.5 g/dL (13.2-16.3); Lymphocyte % 8.8 %; Mean Corpuscular Hemoglobin 30.9 pg (27-33); Mean Corpuscular Hgb Conc 34.9 g/dL (31-36); Mean Corpuscular Volume 88.4 fL (80-97); Platelet Count 363 10^3/uL (150-450); Red Blood Count 4.04 10^6/uL (4.06-5.63); Red Cell Distribution Width 13.5 % (12-17); White Blood Count 10.8 10^3/uL (3.6-10.2)
[2024-07-01] MEDS: HYDROmorphone 0.5 MG/0.5 ML SYRINGE IV ONE ×2 (10:44→11:46)
[2024-07-01 10:52] LABS: Albumin/Globulin Ratio 1.6 (1-3); Calcium 9.4 mg/dL (8.6-10.3); Creatinine, Serum 1.12 mg/dL (0.67-1.17); Globulin 2.5 g/dL (2-4); Potassium 3.9 mmol/L (3.5-5.0); Total Bilirubin 1.1 mg/dL (0.2-1.0); Total Protein 6.5 g/dL (6.4-8.9); eGFR CKD-EPI 69.4 (>60)
[2024-07-01 11:01] LABS: C Reactive Protein < 1.00 mg/L (<8.01); Lipase 30 U/L (11.0-82.0); Magnesium 1.1 mg/dL (1.9-2.7)
[2024-07-01] MEDS: Iodixanol 320 (CONTRAST) 100 ML SDV IV ONE (11:08)
[2024-07-01] MEDS: Morphine 4 MG/ML VIAL (1 ml) IV ONE (11:19)
[2024-07-01] MEDS: fentaNYL 100 mcg/2 ml 50 MCG/ML VIAL IV SLOW PU ONE (11:19)
[2024-07-01] MEDS: Magnesium Sulfate 2 gm BAG 2 GM/50 ML BAG IVPB ONE (11:31)
[2024-07-01] MEDS: NS 0.9% 1000 ml BAG 1,000 ML IV SCH (12:43)
[2024-07-01] MEDS: cefTRIAXone 1 gm/50 mL D5W 1 GM/50 ML BAG IV ONE (12:43)
[2024-07-01] MEDS ORDERED: Ondansetron 4 mg VIAL 2 MG/ML 2 ml VIAL IV PRN (12:46)
[2024-07-01] MEDS ORDERED: Al Hydrox/Mg Hydrox/Simet LIQ 30 ML UDC PO PRN (12:46)
[2024-07-01] MEDS ORDERED: Dextrose 50% Syringe 50 ml 25 GM/50 ML SYRINGE IV PUSH PRN (13:26)
[2024-07-01] MEDS: HYDROmorphone 0.5 MG/0.5 ML SYRINGE IV PRN (13:30)
[2024-07-01] MEDS ORDERED: HYDROmorphone 0.5 MG/0.5 ML SYRINGE IV PRN (16:35)
[2024-07-01] MEDS: HYDROmorphone 1 MG/1 ML SYRINGE IV SLOW PU PRN (16:42)
[2024-07-01] MEDS ORDERED: Iohexol 180 (CONTRAST) 10 ML SDV IV ONE (17:03)
[2024-07-01] MEDS ORDERED: fentaNYL 100 mcg/2 ml 50 MCG/ML VIAL ONE (17:07)
[2024-07-01] MEDS ORDERED: Midazolam 2 mg/2 ml VIAL 1 mg/ml 2 ml VIAL (2 mg) ONE (17:07)
[2024-07-01] MEDS ORDERED: Propofol 10 MG/ML 20 ML BTL ONE (17:08)
[2024-07-01] MEDS ORDERED: Lidocaine 2% PF 5 ML VIAL ONE (17:09)
[2024-07-01] MEDS ORDERED: Naloxone 0.4 mg VIAL 0.4 mg/ml 1 ml VIAL IV PRN (17:17)
[2024-07-01] MEDS ORDERED: fentaNYL 100 mcg/2 ml 50 MCG/ML VIAL IV PRN (17:17)
[2024-07-01] MEDS ORDERED: Metoclopramide 5 MG/ML VIAL (10 mg) IV PRN (17:17)
[2024-07-01] MEDS ORDERED: Ondansetron 4 mg VIAL 2 MG/ML 2 ml VIAL ONE (17:56)
[2024-07-01] MEDS ORDERED: NS 0.45% 1000 ml BAG 1,000 ML IV SCH (18:00)
[2024-07-01] MEDS: Sodium Bicarb 650 mg (ANTACID) TAB PO SCH (20:38)
[2024-07-01] MEDS: Acetaminophen IV 1 GM/100ML 1,000 MG/100 ML BAG IV ONE (23:30)
[2024-07-01] MEDS: Lactated Ringers 1000 ml BAG 1,000 ML IV SCH (23:31)
[2024-07-01] MEDS: Buffered Lidocaine 1% SYRIN 1 ml INTRADERM ONE (23:31)
[2024-07-01] MEDS: Scopolamine 1 mg/72hr PATCH TRANSDERM ONE (23:31)
[2024-07-02] MEDS ORDERED: Dextrose 50% Syringe 50 ml 25 GM/50 ML SYRINGE IV PUSH PRN (04:59)
[2024-07-02] MEDS: DEXLANSOPRAZOLE 60 MG PO SCH (08:19)
[2024-07-02] MEDS: Enoxaparin 40 MG/0.4 ML SYR SUBCUT SCH (08:23)
[2024-07-02 08:28] LABS: Creatinine, Serum 0.96 mg/dL (0.67-1.17); Magnesium 1.4 mg/dL (1.9-2.7); Potassium 3.5 mmol/L (3.5-5.0); eGFR CKD-EPI 83.5 (>60)
[2024-07-02] MEDS: Magnesium Sulfate 2 gm BAG 2 GM/50 ML BAG IVPB ONE (09:05)
[2024-07-02 11:21] VITALS: BP 141/82
[2024-07-02] MEDS: cefTRIAXone 1 gm/50 mL D5W 1 GM/50 ML BAG IV SCH (14:50)
== END 2024-07-02 11:55 | disposition home or self-care (01) ==
LOC: EDHOLD 08:49 → ED 08:49 → MEDTELE 13:18 → UNDODISOB 18:10
PROVIDERS: ADMIT Internal Medicine; ATTEND Internal Medicine